=== PATIENT | male | born 1950 | race Caucasian/White ===

== ENCOUNTER 2024-05-17 14:36 | Outpatient (OUT) | payer OTHER, SELFPAY ==
--- NOTE | 2024-05-17 14:47 | XR_ITS ---
The [address] [address] Patient Name: LATISHA COSTA MRN: [id number] date: 1950 Sex: M Assigned Patient Location: [facility] Current Patient Location: Accession/Order Number: [id number] Exam Date: 05/17/2024 15:35 Report Date: 05/18/2024 08:26 At the request of: JULIO MATSON Procedure: XR chest 2V EXAMINATION: XR chest 2V HISTORY: Preop exam COMPARISON: No relevant comparison available. TECHNIQUE: PA and lateral FINDINGS: LUNGS: No significant pulmonary parenchymal abnormalities. Mild left basilar atelectasis VASCULATURE: No increased pulmonary vasculature. PLEURA: No pneumothorax, effusion, or pleural thickening. CARDIAC: No cardiomegaly or cardiac silhouette abnormality. MEDIASTINUM: No visible mass or adenopathy. BONES: Mild degenerative disc disease and spondylosis without visible acute abnormalities. OTHER: Negative. XR/XR chest 2V IMPRESSION: Mild left basilar atelectasis Electronically authenticated by: DANGELO MELCHOR Date: 05/18/2024 08:26
--- NOTE | 2024-05-17 14:47 | ECG_ITS ---
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
--- NOTE | 2024-05-17 15:26 | P.GSHP_ITS ---
History of Present Illness History of Present Illness Chief complaint: BPH with Obstruction Narrative: Patient presents for preadmission testing. The patient reports a history of urinary retention and has had a Maharaj catheter in place since November of this year. The patient states he does not have any abdominal pain, fever, nausea, vomiting, or urinary complaints at this time. Review of Systems ROS Narrative REVIEW OF SYSTEMS: Negative except as stated in HPI, ten or more systems reviewed. Constitutional: No fever, chills, weakness ENT: No sore throat or epistaxis Cardiovascular: No edema, chest pain, or palpitations Respiratory: No shortness of breath, cough, or wheezing Musculoskeletal: No joint pain or swelling Gastrointestinal: No abdominal pain, constipation, diarrhea, or vomiting Neurological: No numbness, tingling, weakness, or headache Psychiatric: No mood changes [facility] Medical History (Updated 05/17/24 @ 15:15 by Lynda Olivo NP) Edentulous ?K08.109 - Complete loss of teeth, unspecified cause, unspecified class (ICD- 10) Dysphagia ?R13.10 - Dysphagia, unspecified (ICD-10) Syncopal episodes ?R55 - Syncope and collapse (ICD-10) Dizziness ?R42 - Dizziness and giddiness (ICD-10) Aortic aneurysm ?I71.9 - Aortic aneurysm of unspecified site, without rupture (ICD-10) High cholesterol ?E78.00 - Pure hypercholesterolemia, unspecified (ICD-10) Kidney stones ?N20.0 - Calculus of kidney (ICD-10) Presence of internal carotid stent ?Z95.828 - Presence of other vascular implants and grafts (ICD-10) Gross hematuria ?R31.0 - Gross hematuria (ICD-10) Maharaj catheter in place ?Z97.8 - Presence of other specified devices (ICD-10) Urinary retention ?R33.9 - Retention of urine, unspecified (ICD-10) 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 - Malignant neoplasm of tonsil, unspecified (ICD-10) Renal cyst ?N28.1 - Cyst of kidney, acquired (ICD-10) Hypertension ?I10 - Essential (primary) hypertension (ICD-10) Hydronephrosis ?N13.30 - Unspecified hydronephrosis (ICD-10) CAD (coronary artery disease) ?I25.10 - Atherosclerotic heart disease of [place] coronary artery without angina pectoris (ICD-10) Arthritis ?M19.90 - Unspecified osteoarthritis, unspecified site (ICD-10) Thyroid disease ?E07.9 - Disorder of thyroid, unspecified (ICD-10) 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, unspecified (ICD-10) Gout ?M10.9 - Gout, unspecified (ICD-10) BPH with obstruction/lower urinary tract symptoms ?N40.1 - Benign prostatic hyperplasia with lower urinary tract symptoms (ICD- 10) ?N13.8 - Other obstructive and reflux uropathy (ICD-10) Surgical History (Updated 05/17/24 @ 14:45 by Lynda Olivo NP) H/O vascular surgery ?Z98.890 - Other specified postprocedural states (ICD-10) Hx of tonsillectomy ?Z90.89 - Acquired absence of other organs (ICD-10) History of radical neck dissection ?Z98.890 - Other specified postprocedural states (ICD-10) H/O cystoscopy ?Z98.890 - Other specified postprocedural states (ICD-10) Family History (Updated 05/17/24 @ 15:15 by Lynda Olivo NP) Other Family history of diabetes mellitus Social History (Updated 05/17/24 @ 15:07 by Lynda Olivo NP) Within the past year, how often did you have a drink containing alcohol: 2-3 times a week Smoking status: Former smoker Non-prescribed substance use: denies use 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 Highest level of school completed/degree received: high school graduate Meds Home Medications and Allergies Home Medications ?Medication ?Instructions ?Recorded ?Confirmed ?Type amlodipine 10 mg tablet 10 mg PO DAILY 05/17/24 05/17/24 History aspirin 81 mg tablet,delayed 81 mg PO DAILY 05/17/24 05/17/24 History release (Adult Aspirin Regimen) atenolol 25 mg tablet 25 mg PO DAILY 05/17/24 05/17/24 History clopidogrel 75 mg tablet 75 mg PO DAILY 05/17/24 05/17/24 History fluoxetine 20 mg capsule 20 mg PO DAILY 05/17/24 05/17/24 History gemfibrozil 600 mg tablet 600 mg PO DAILY 05/17/24 05/17/24 History hydrochlorothiazide 25 mg tablet 25 mg PO DAILY 05/17/24 05/17/24 History levothyroxine 25 mcg tablet 25 mcg PO DAILY 05/17/24 05/17/24 History losartan 100 mg tablet 100 mg PO DAILY 05/17/24 05/17/24 History Allergies Allergy/AdvReac Type Severity Reaction Status Date / Time Penicillins Allergy Rash Verified 05/17/24 15:00 Exam Narrative Exam Narrative: Constitutional: Awake, alert, comfortable, well-appearing, nontoxic, interactive, vital signs as charted Head: Normocephalic, atraumatic Neck: Supple, normal appearance, normal range of motion, no meningeal signs, no lymphadenopathy Respiratory: No respiratory distress, breath sounds clear Cardiovascular: Regular rate and rhythm, strong and regular heart tones Abdomen: Nontender, normal bowel sounds, soft, no CVA tenderness Musculoskeletal: Normal gait, no swelling or edema Skin: No rashes or induration, no lesions, only visible skin inspected Neuro: No neurological deficits, normal sensation Psychiatric: Oriented ?3, normal affect Assessment and Plan Assessment and Plan (1) BPH with obstruction/lower urinary tract symptoms: (2) Urinary retention: (3) Maharaj catheter in place: (4) Gross hematuria: Plan Cystoscopy/TURP scheduled with Dr. Avila May 27, 2024.
[2024-05-17 15:37] LABS: Basophils Absolute Auto 0.1 10^3/uL (0.0-0.1); Basophils Percent Auto 1.5 % (0.2-2.0); Eosinophils Absolute Auto 0.4 10^3/uL (0.0-0.7); Eosinophils Percent Auto 6.3 % (0.9-7.0); Hematocrit 37.4 % (42.0-54.0); Immature Granulocytes Abs Auto 0.02 10^3/uL (0.00-0.03); Immature Granulocytes Pct Auto 0.3 % (0.0-0.5); Lymphocytes Absolute Auto 1.4 10^3/uL (1.2-3.8); Lymphocytes Percent Auto 20.7 % (20.5-60.0); Mean Corpuscular HGB Conc 32.1 g/dL (29.9-35.2); Mean Corpuscular Hemoglobin 30.5 pg (25.9-34.0); Mean Corpuscular Volume 95.2 fL (80.0-94.0); Mean Platelet Volume 9.3 fL (9.5-13.5); Monocytes Absolute Auto 0.8 10^3/uL (0.3-0.8); Monocytes Percent Auto 12.3 % (1.7-12.0); Neutrophils Absolute Auto 3.9 10^3/uL (1.4-6.5); Neutrophils Percent Auto 58.9 % (43.0-75.0); Platelet Count 275 10^3/uL (150-450); Red Blood Count 3.93 10^6/uL (4.70-6.10); Red Cell Distribution Width 12.7 % (11.0-15.0); White Blood Count 6.5 10^3/uL (4.0-11.0)
[2024-05-17 15:58] LABS: Anion Gap 9.8; Calcium 8.7 mg/dL (8.5-10.1); Carbon Dioxide 26.6 mmol/L (21.0-32.0); Chloride 105 mmol/L (98-107); Estimated GFR (African America 30 (>=60); Estimated GFR (Non-African Ame 25 (>=60); Glucose 91 mg/dL (74-106); Potassium 4.4 mmol/L (3.5-5.1); Sodium 137 mmol/L (136-145)
[2024-05-17 16:01] LABS: INR 0.97; Partial Thromboplastin Time 30.5 sec (22.3-36.2); Prothrombin Time 10.3 sec (9.0-11.6)
== END 2024-05-17 14:37 | disposition home or self-care (01) ==
LOC: PST 14:41
PROVIDERS: Family Provider Family Medicine; Visit Provider Urology
DX: Z01.810 Encounter for preprocedural cardiovascular examination (principal); Z01.812 Encounter for preprocedural laboratory examination; Z01.818 Encounter for other preprocedural examination; N40.1 Benign prostatic hyperplasia with lower urinary tract symptoms
CPT/HCPCS: 71046; 80048; 85025; 85610; 85730; 93005; G0463

== ENCOUNTER 2024-05-27 10:53 | Day surgery (SDC) | payer OTHER, SELFPAY ==
[2024-05-17 15:23] VITALS: BP 129/86; PULSE 71; TEMP 36.3; O2SAT 96; BMI 31.9
[2024-05-27] VITALS (13 sets, daily range): BP systolic 102–137; BP diastolic 60–91; PULSE 62–92; TEMP 36–36.7; O2SAT 93–100; BMI 31.1
--- OUTSIDE RECORDS SUMMARY | 2024-05-27 10:58 | XMS_ITS | CCD ---
Author Organization [facility] Care Team Providers Care Incising Machine Operator Name Role Phone DO Dangelo Schuler Primary Care Provider MD Peter Imtani Attending Provider DO Dangelo Schuler Primary Care Provider DO Dangelo Schuler Attending Provider JOSE ANGEL Alonso Emergency Provider MD Travon Pandya Admit Provider [phone] MD Travon Pandya Attending Provider [phone] Unallocated, [place] Provider [facility]riz E Emergency Provider [phone] KUN NOLASCO Attending Unavailable KUN NOLASCO Referring Unavailable DANGELO SCHULER Primary Care Physician DO Dangelo Schuler Primary Care Provider DO Dangelo Schuler Attending Provider Anitha [facility] Beatriz E Emergency Provider [phone] DO Dangelo Schuler Primary Care Provider DO Darryl Garcia Emergency Provider [phone] Latisha Suazo Attending Unavailable Latisha Sauzo Referring Unavailable Rajat AVILA Attending Unavailable Bess Duarte Attending Unavailable Bess Duarte Attending Unavailable Rajat AVILA Attending Unavailable Rajat AVILA Attending Unavailable Rajat AVILA Attending Unavailable AVILARajat Attending Unavailable Rajat AVILA Referring Unavailable Rajat AVILA Admitting Unavailable Rajat AVILA Attending Unavailable Dangelo Schuler Primary Care Unavailable Darryl Garcia Admitting Unavailable Darryl Garcia Attending Unavailable Beatriz Welsh Admitting Unavailable Beatriz Welsh Attending Unavailable Dangelo Schuler Primary Care Unavailable Gregoryroallan, Dangelo Ragland Attending Unavailable Dangelo Schuler Admitting Unavailable Degroallan, Dangelo Ragland Primary Care Unavailable Dangelo Schuler Attending Unavailable GregoryroDangelo lemus Admitting Unavailable Degroh, Dangelo Ragland Primary Care Unavailable Will Jane Attending Unavailable Dannie Montana Consulting Unavailable Daromakurt Obaydaallan M Admitting Unavailable Dangelo Schuler Primary Care Unavailable Triny Armstrong Consulting Unavailable Sravan Grossman Consulting Unavailable SinghSacha ya Consulting Unavailable Guillermo Geronimo Consulting Unavailable Eladio Garcia Consulting Unavailable Latisha Suazo Consulting Unavailable Asaad, Imad Admitting Unavailable Asaad, Imad Attending Unavailable Dangelo Schuler Primary Care Unavailable Allergies Allergy Classification Reported Allergen(s) Allergy Type Date of Onset Reaction(s) Facility (4 sources) Penicillins; Translations: [Penicillins] Allergy to substance 8 [facility] (6 sources) Penicillin; Translations: [penicillin] Drug Allergy Eruption of skin (disorder) [facility] Medications Current Medications Medication Drug Class(es) Dates Sig (Normalized) Sig (Original) amLODIPine 10 mg oral tablet (11 sources) Dihydropyridine Calcium Channel Paulino Start: 12-01-2023 amLODIPine 10 mg Tab Refills(s) 0 Start Date: 01/05/24 Status: Ordered Aspirin (12 sources) Platelet Aggregation Inhibitor, Nonsteroidal Anti-inflammatory Drug Start: 01-05-2024 Adult Aspirin Refills(s) 0 Start Date: 01/05/24 Status: Ordered Start: 04-15-2018 take 81 mg by mouth once daily Aspirin Active 81 MG PO Daily April 15, 2018 12:00am atenolol 25 mg oral tablet (9 sources) beta-Adrenergic Paulino Start: 04-15-2018 take 25 mg by mouth once daily Atenolol Active 25 MG PO Daily April 15, 2018 12:00am cholecalciferol 0.05 mg oral tablet (9 sources) Vitamin D Start: 02-20-2021 take 1 tablet by mouth once daily Cholecalciferol (Vitamin D3) (Vitamin D3) 50 mcg (2,000 unit) Tablet Active 50 MCG PO Daily February 20, 2021 12:00am cholecalciferol (Vitamin D-3) 25 MCG (1000 UT) tablet clopidogrel 75 mg oral tablet (14 sources) P2Y12 Platelet Inhibitor Start: 04-15-2018 clopidogrel 75 mg Ta b Refills(s) 0 Start Date: 01/05/24 Status: Ordered doxycycline hyclate 100 mg oral capsule (9 sources) Tetracycline-class Drug Start: 12-02-2023 End: 12-09-2023 doxycycline (Vibramycin) 100 MG capsule Indications: Cellulitis of right middle finger Take 1 capsule (100 mg) by mouth in the morning and 1 capsule (100 mg) before bedtime. Do all this for 7 days. Take with at least 8 ounces (large glass) of water, do not lie down for 30 minutes after. 14 capsule 0 12/02/2023 12/09/2023 Active Start: 02-20-2021 End: 07-23-2023 take 100 mg by mouth twice daily Doxycycline Hyclate Discontinued 100 MG PO Twice daily 14 7 February 20, 2021 12:00am July 23, 2023 9:58am FLUoxetine 20 mg oral capsule (12 sources) Serotonin Reuptake Inhibitor Start: 11-25-2023 FLUoxetine 20 mg Cap Refills(s) 0 Start Date: 01/05/24 Status: Ordered Gemfibrozil (14 sources) Peroxisome Proliferator Receptor alpha Agonist Start: 01-05-2024 take 1 mg by mouth twice daily gemfibrozil mg, Oral, BID, Refills(s) 0 Start Date: 01/05/24 Status: Ordered Start: 04-15-2018 take 600 mg by mouth once delia y Gemfibrozil Active 600 MG PO Daily April 15, 2018 12:00am hydroCHLOROthiazide 25 mg oral tablet (14 sources) Thiazide Diuretic Start: 04-15-2018 hydrochlorothiazide 25 mg Tab Refills(s) 0 Start Date: 01/05/24 Status: Ordered levothyroxine sodium 0.025 mg oral tablet (14 sources) l-Thyroxine Start: 01-05-2024 levothyroxine 25 mcg (0.025 mg) Tab Refills(s) 0 Start Date: 01/05/24 Status: Ordered Start: 04-15-2018 take 25 ug by mouth once daily Levothyroxine Active 25 MCG PO Daily April 15, 2018 12:00am losartan potassium 100 mg oral tablet (16 sources) Angiotensin 2 Receptor Paulino Start: 04-15-2018 End: 07-23-2023 take 100 mg by mouth once daily Losartan Active 100 MG PO Daily July 23, 2023 12:00am Mx-Ulm-Sm-Ca-Fe-Ly copen-Lutein (4 sources) Start: 07-23-2023 take 1 tablet by mouth once daily Nj-Bbu-Bl-Ca-Fe- Lycopen-Lutein Active 1 TAB PO Daily July 23, 2023 12:00am Start: 07-23-2023 take 1 tablet by juli th once daily Yo-Orw-Bj-Pj-Dw-Xpyrcsv-Lutein Active 1 TAB PO Daily July 22, 2023 11:00pm Ie-Fbk-Rc-Ma-Mc-Recbizv-Lute in (Centrum) 0.4-162-18 mg Tablet (3 sources) Start: 07-23-2023 take 1 tablet by mouth once daily Jw-Rqu-Ts-Is-Tt-Fuefirb-Lutein (Centrum) 0.4-162-18 mg Tablet Active 1 TAB PO Daily July 22, 2023 11:00pm Start: 07-23-2023 take 1 tablet by juli th once daily Jx-Pst-Mt-Nz-Wb-Bpzeywr-Lutein (Centrum) 0.4-162-18 mg Tablet Active 1 TAB PO Daily July 23, 2023 12:00am tamsulosin hydrochloride 0.4 mg oral capsule (5 sources) alpha-Adrenergic Paulino Start: 01-05-2024 take 1 capsule by mouth once daily tamsulosin 0.4 mg Cap 0.4 mg = 1 cap(s), Oral, Daily, # 30 cap(s), Refills(s) 4, Pharmacy: [facility] #[id number], 183, cm, 01/05/24 13:42:00 EDT, Height/Length Dosing, 105, kg, 01/05/24 13:42:00 EDT, Weight Dosing Start Date: 01/05/24 Status: Ordered vitamin e 400 unt/ml oral solution (14 sources) Start: 02-20-2021 End: 07-23-2023 take 400 [IU] by mouth once daily Vitamin E Active 400 UNIT PO Daily July 23, 2023 12:00am Completed/Discontinued Medications Medication Drug Class(es) Dates Sig (Normalized) Sig (Original) acetaminophen 325 mg / HYDROcodone bitartrate 5 mg oral tablet (7 sources) Opioid Agonist Start: 04-15-2018 End: 02-08-2020 take 1 tablet by mouth every eight hours Hydrocodone-Acetam inophen (Pacoima) 5-325 mg tablet Discontinued 1 TAB PO Q8H April 15, 2018 February 08, 2020 4:33pm [id number] 200 actuat albuterol 0.09 mg/actuat metered dose inhaler (7 sources) beta2-Adrenergic Agonist Start: 02-08-2020 End: 07-23-2023 Albuterol Sulfate Discontinued 2 INH INHALATION EVERY 4-6 HOURS 6.7 7 February 08, 2020 12:00am July 23, 2023 9:58am azithromycin 250 mg oral tablet (7 sources) Macrolide Antimicrobial Start: 02-08-2020 End: 02-20-2021 take 2-5 tablets by mouth once daily Azithromycin (Zithromax Z-Brent) 250 mg tablet Discontinued 0 PO .COMPLEX 6 February 08, 2020 12:00am February 20, 2021 3:47am take 500 mg today (day 1), then 250 mg for 4 days (days 2-5) ciprofloxacin 500 mg oral tablet (4 sources) Quinolone Antimicrobial Start: 02-09-2024 take 1 tablet by mouth once daily Cipro 500 mg Tab 500 mg = 1 tab(s), Oral, Daily, Take 1 tablet the day before the procedure, # 1 tab(s), Refills(s) 0, Pharmacy: [facility] #[id number], 183, cm, 01/05/24 13:42:00 EDT, Height/Length Dosing, 105, kg, 01/05/24 13:42:00 EDT, Weight Dosing Start Date: 02/09/24 Status: Ordered Start: 01-28-2024 take 1 tablet by juli th once daily Cipro 500 mg Tab 500 mg = 1 tab(s), Oral, Daily, Take 1 tablet the day before the procedure and 1 tablet after the procedure, # 2 tab(s), Refills(s) 0, Pharmacy: [facility] #[id number], 183, cm, 01/05/24 13:42:00 EDT, Height/Length Dosing, 105, kg, 01/05/24 13:42:00 EDT, Weight Dosing Start Date: 01/28/24 Status: Ordered Kjuxylgx-Kyb-Affxdlv Fumarate (Multi Vitamin) 9 mg iron/15 mL Liquid (7 sources) Start: 04-15-2018 End: 07-23-2023 take 1 tablet by mouth once daily Lazkmyii-Hen-Smjsysi Fumarate (Multi Vitamin) 9 mg iron/15 mL Liquid Discontinued 1 TAB PO Daily April 14, 2018 11:00pm July 23, 2023 8:57am Start: 04-15-2018 End: 07-23-2023 take 1 tablet by mouth once daily Mvdzncqg-Bhv-Dtkucvk Fumarate (Multi Vitamin) 9 mg iron/15 mL Liquid Discontinued 1 TAB PO Daily April 15, 2018 12:00am July 23, 2023 9:57am Sod Picosulf-Mag Ox-Citric Ac (2 sources) Start: 12-11-2023 End: 01-20-2024 take 1 dose by mouth once daily Sod Picosulf-Mag Ox-Citric Ac (Clenpiq) 10 mg-3.5 gram- 12 gram/175 mL solution Discontinued 175 ML PO Daily December 11, 2023 1:00am January 20, 2024 1:15pm Take first dose at 3pm orally the day before colonoscopy, Take second dose at 9pm orally the day before colonoscopy. 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 ] 01-01-2024 Chronic Chronic kidney disease (10 sources) Chronic kidney disease stage 4; Translations: [Chronic kidney disease, stage 4 (severe)] Onset: 01-19-2024 Chronic Coronary atherosclerosis and other heart disease (18 sources) Coronary arteriosclerosis; Translations: [Atherosclerotic heart disease of [place] coronary artery without angina pectoris] Onset: 4 02-20-2021 Chronic Deficiency and other anemia (4 sources) Anemia; Translations: [Anemia, unspecified] 11-26-2023 Episodic Essential hypertension (16 sources) Hypertensive disorder; Translations: [Essential (primary) hypertension] Onset: 4 02-20-2021 Chronic Genitourinary symptoms and ill-defined conditions (19 sources) Acute retention of urine ; Translations: [Other retention of urine] Onset: 4 11-25-2023 Episodic Gout and other crystal arthropathies (5 sources) Gout 01-01-2024 Chronic Hyperplasia of prostate (14 sources) Benign prostatic hypertrophy without outflow obstruction; Translations: [Benign prostatic hyperplasia without lower urinary tract symptoms] Onset: Chronic Hypertension with complications and secondary hypertension (4 sources) Chronic kidney disease due to hypertension; Translations: [Hypertensive chronic kidney disease with stage 1 through stage 4 chronic kidney disease, or unspecified chronic kidney disease] 01-19-2024 Chronic Osteoarthritis (7 sources) Osteoarthritis of joint of right hand; Translations: [Primary osteoarthritis, right hand] 12-02-2023 Chronic Other connective tissue disease (2 sources) Pain in finger; Translations: [Pain in right finger(s)] 12-02-2023 Episodic Other diseases of bladder and urethra (1 source) Bleeding from urethra; Translations: [Other specified disorders of urethra] 04-04-2024 Episodic Other diseases of kidney and ureters (2 sources) Secondary hyperparathyroidism; Translations: [Secondary hyperparathyroidism of renal origin] 01-19-2024 Chronic Other diseases of kidney and ureters (2 sources) Secondary hyperparathyroidism of renal origin; Translations: [Secondary hyperparathyroidism (of renal origin)] 01-20-2024 Chronic Other diseases of kidney and ureters (7 sources) Hydronephrosis; Translations: [Unspecified hydronephrosis] Onset: 4 Episodic Other diseases of kidney and ureters (2 sources) Acquired renal cyst without neoplastic change; Translations: [Cyst of kidney, acquired] Onset: 4 Episodic Other diseases of kidney and ureters (5 sources) Cyst of kidney 01-04-2024 Episodic Other injuries and conditions due to external causes (7 sources) Aspiration into respiratory tract; Translations: [Unspecified foreign body in respiratory tract, part unspecified causing other injury, initial encounter] 02-20-2021 Episodic Other lower respiratory disease (7 sources) Dyspnea; Translations: [Shortness of breath] 02-20-2021 Episodic Other screening for suspected conditions (not mental disorders or infectious disease) (1 source) Encounter for screening for malignant neoplasm of prostate; Translations: [Screening for malignant neoplasm done] Onset: 4 Episodic Pneumonia (except that caused by tuberculosis or sexually transmitted disease) (7 sources) Community acquired pneumonia; Translations: [Pneumonia, unspecified organism] 02-08-2020 Episodic Residual codes; unclassified (1 source) Urinary catheter in situ; Translations: [Presence of other specified devices] 04-04-2024 Episodic Skin and subcutaneous tissue infections (2 sources) Cellulitis of finger; Translations: [Cellulitis of right finger] 12-02-2023 Episodic Thyroid disorders (12 sources) Hypothyroidism; Translations: [Hypothyroidism, unspecified] 02-20-2021 Chronic Thyroid disorders (5 sources) Disorder of thyroid gland 01-01-2024 Episodic Unclassified (3 sources) Finding of sensation of bladder 02-27-2024 Unclassified (1 source) Thoracic aortic aneurysm, without rupture, unspecified; Translations: [Thoracic aortic aneurysm, without rupture, unspecified] Onset: 4 Unclassified (1 source) Encounter for screening for malignant neoplasm of colon; Translations: [Encounter for screening for malignant neoplasm of colon] Onset: 3 Past or Other Problems Problem Classification Problem Date Documented Da te Episodic/Chronic Acute and unspecified renal failure (14 sources) Acute renal failure syndrome; Translations: [Acute kidney failure, unspecified] Onset: 4 11-25-2023 Episodic Deficiency and other anemia (4 sources) Anemia, unspecified; Translations: [Anemia, unspecified] Onset: 4 11-25-2023 Episodic Phlebitis; thrombophlebitis and thromboembolism (4 sources) Phlebitis; Translations: [Phlebitis and thrombophlebitis of unspecified site] Onset: 4 12-04-2023 Episodic Results Test Name Value Interpretation Reference Range Facil ity Ambulatory Visit Summaryon 0 04-19-2024 Ambulatory Visit Summary Ambulatory Visit Summary LATISHA COSTA :1950 Visit Date:04/19/2024 Ambulatory Visit Instructions Your Care Team Attending Physician - SAMMI Duarte APRN, Bess Lynch Primary Care Physician - DANGELO SCHULER DO This Is Your Medications List amlodipine (amLODIPine 10 mg Tab) aspirin (Adult Aspirin) ciprofloxacin (Cipro 500 mg Tab) clopidogrel (clopidogrel 75 mg Tab) fluoxetine (FLUoxetine 20 mg Cap) gemfibrozil hydrochlorothiazide (hydrochlorothiazide 25 mg Tab) levothyroxine (levothyroxine 25 mcg (0.025 mg) Tab) tamsulosin (tamsulosin 0.4 mg Cap) Procedures Performed Flexible cystoscope (02/27/2024), Extended radical neck dissection, Tonsillectomy, Vascular surgery. What to do next Scheduled Follow-Up Appointments Friday 9:30 AM EDT With: Where: [facility] [address] [place] [address]- \.br\ Medications\.br\ What How Much When Why Instructions\.br\ Unchanged amlodipine (amLODIPine 10 mg Tab)\.br\ Unchanged aspirin (Adult Aspirin)\.br\ Unchanged ciprofloxacin (Cipro 500 mg Tab) 1 Tablets By Mouth Every day Take 1 tablet the day before the procedure \.br\ Unchanged clopidogrel (clopidogrel 75 mg Tab)\.br\ Unchanged fluoxetine (FLUoxetine 20 mg Cap)\.br\ Unchanged gemfibrozil By Mouth 2 times a day\.br\ Unchanged hydrochlorothiazide (hydrochlorothiazide 25 mg Tab)\.br\ Unchanged levothyroxine (levothyroxine 25 mcg (0.025 mg) Tab)\.br\ Unchanged tamsulosin (tamsulosin 0.4 mg Cap) 1 Capsules By Mouth Every day BPH (benign prostatic hyperplasia)\.br\ Allergies\.br\ penicillin (Rash)\.br\ Problems\.br\ Ongoing - Any problem that you are currently receiving treatment for.\.br\ Arthritis\.br\ BPH (benign prostatic hyperplasia)\.br\ BPH with urinary obstruction\.br\ Coronary artery disease\.br\ Feeling of incomplete bladder emptying\.br\ Gout\.br\ Hydronephrosis\.br\ Hypertension\.br\ Hypothyroidism\.br\ Kidney cysts\.br\ 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 Please share your experience with us by completing your survey. We appreciate your feedback and thank you for choosing us for your care.\.br\ \.br\ [facility] Automated basophil %Ordered By: Darryl Garcia on 04-04-2024 Basophils/100 WBC (Bld) 1.4 % Normal . [facility] Comment on above: Performed By: #### H EPACUTE #### [facility] , Automated basophil countOrde red By: Darryl Garcia on 04-04-2024 Basophils (Bld) [#/Vol] 0.1 10*3/uL Normal 0.0-0.2 [facility] Comment on above: Result Comment: PERF ORMED BY: [facility] [address] [place] [address] PATHOLOGIST STATEMENT CLERK LUZ MARINA EMANUEL M.D. Performed By: #### H EPACUTE #### [facility] , Automated blood monocyte cou ntOrdered By: Darryl Garcia on 04-04-2024 Monocytes (Bld) [#/Vol] 0.6 10*3/uL Normal 0.0-0.8 [facility] Comment on above: Performed By: #### H EPACUTE #### [facility] , Automated eosinophil %Ordere d By: Darryl Garcia on 04-04-2024 Eosinophils/100 WBC (Bld) 5.0 % Normal . [facility] Comment on above: Performed By: #### H EPACUTE #### [facility] , Automated eosinophil countOr dered By: Darryl Garcia on 04-04-2024 Eosinophils (Bld) [#/Vol] 0.3 10*3/uL Normal 0.0-0.45 [facility] Comment on above: Performed By: #### H EPACUTE #### [facility] , Automated monocyte %Ordered By: Darryl Garcia on 04-04-2024 Monocytes/100 WBC (Bld) 10.9 % Normal . [facility] Comment on above: Performed By: #### H EPACUTE #### [facility] , Automated neutrophil %Ordere d By: Darryl Garcia on 04-04-2024 Neutrophils/100 WBC (Bld) 62.8 % Normal . [facility] Comment on above: Performed By: #### H EPACUTE #### [facility] , Bacteria [Presence] in Urine by AutomatedOrdered By: Darryl Garcia on 04-04-2024 Bacteria Auto Ql (U) None seen [HPF] None Seen [facility] Basic Metabolic Panelon 03-20 Creatinine Clr Calc Pharmacy 35.25 Normal [facility] Comment on above: Result Comment: PERF ORMED BY: [facility] [address] [place] [address] PATHOLOGIST STATEMENT CLERK LUZ MARINA EMANUEL M.D. Performed By: #### H EPACUTE #### [facility] , GFR/1.73 sq M.predicted MDRD (S/P/Bld) [Vol rate/Area] 27.589 mL/min/{1.73_m2} Normal [facility] Comment on above: Performed By: #### H EPACUTE #### [facility] , Bilirubin Test strip Ql (U)O rdered By: Darryl Garcia on 04-04-2024 Bilirubin Ql (U) Negative Negative [facility] Calcium [Mass/volume] in Ser um or PlasmaOrdered By: Darryl Garcia on 04-04-2024 Calcium [Mass/Vol] 9.0 mg/dL Normal 8.6-10.3 [facility] Comment on above: Performed By: #### H EPACUTE #### [facility] , Carbon dioxide, total [Moles /volume] in Serum or PlasmaOrdered By: Darryl Garcia on 04-04-2024 CO2 [Moles/Vol] 28.0 mmol/L Normal 21.0-31.0 [facility] Comment on above: Performed By: #### H EPACUTE #### [facility] , Chloride [Moles/volume] in S mariya or PlasmaOrdered By: Darryl Garcia on 04-04-2024 Chloride [Moles/Vol] 107 mmol/L Normal 98-107 [facility] Comment on above: Performed By: #### H EPACUTE #### [facility] , Color of Urine by AutoOrdere d By: Darryl Garcia on 04-04-2024 Color (U) Light-yellow Normal Yellow [facility] Comment on above: Order Comment: Name Collection Type:: Lee Catheter Performed By: #### H EPACUTE #### [facility] , Complete Blood Count Auto Di ffon 04-04-2024 Mean Corpuscular HGB Conc 34.0 g/dL Normal 32.5-35.6 [facility] Comment on above: Performed By: #### H EPACUTE #### [facility] , Monocytes/100 WBC (Bld) 16.17 % Normal 0.00-20.00 [facility] Comment on above: Performed By: #### H EPACUTE #### [facility] , NRBC% 0.1 /100{WBC} Normal 0-0.5 [facility] Comment on above: Performed By: #### H EPACUTE #### [facility] , Creatinine [Mass/volume] in Serum or PlasmaOrdered By: Darryl Garcia on 04-04-2024 Creatinine [Mass/Vol] 2.44 mg/dL High 0.70-1.30 [facility] Comment on above: Performed By: #### H EPACUTE #### [facility] , Crystals.amorphous [Presence ] in Urine by Computer assisted methodOrdered By: Darryl Garcia on 04-04-2024 Crystals.amorphous Computer assisted Ql (U) 1+ [HPF] [facility] Dipstick and Microscopicon 0 04-04-2024 Amorphous Crystal,Urine 1+ Normal [facility] Comment on above: Order Comment: Name Collection Type:: Lee Catheter Performed By: #### H EPACUTE #### [facility] , Bacteria,Urine None Seen Normal None Seen [facility] Comment on above: Order Comment: Name Collection Type:: Lee Catheter Performed By: #### H EPACUTE #### [facility] , Bilirubin,Urine Negative Normal Negative [facility] Comment on above: Order Comment: Name Collection Type:: Lee Catheter Performed By: #### H EPACUTE #### [facility] , Glucose Ql (U) Normal Normal Normal [facility] Comment on above: Order Comment: Name Collection Type:: Lee Catheter Performed By: #### H EPACUTE #### [facility] , Hyaline Casts,Urine None Normal 0-8 [facility] Comment on above: Order Comment: Name Collection Type:: Lee Catheter Performed By: #### H EPACUTE #### [facility] , Mucus,Urine Rare Normal [facility] Comment on above: Order Comment: Name Collection Type:: Lee Catheter Result Comment: PERF ORMED BY: [address] [place] [id number] PATHOLOGIST STATEMENT CLERK LUZ MARINA EMANUEL M.D. Performed By: #### H EPACUTE #### [facility] , Nitrite,Urine Positive High Negative [facility] Comment on above: Order Comment: Name Collection Type:: Lee Catheter Performed By: #### H EPACUTE #### [facility] , Occult Blood,Urine 3+ High Negative [facility] Comment on above: Order Comment: Name Collection Type:: Lee Catheter Result Comment: PERF ORMED BY: [address] [place] [address] PATHOLOGIST STATEMENT CLERK LUZ MARINA EMANUEL M.D. Performed By: #### H EPACUTE #### [facility] , RBC,Urine Innumerable High 0-4 [facility] Comment on above: Order Comment: Name Collection Type:: Lee Catheter Performed By: #### H EPACUTE #### [facility] , Specificy [place],Urine 1.014 Normal 1.001-1.030 [facility] Comment on above: Order Comment: Name Collection Type:: Lee Catheter Performed By: #### H EPACUTE #### [facility] , Urobilinogen,Urine Normal Normal Normal [facility] Comment on above: Order Comment: Name Collection Type:: Lee Catheter Performed By: #### H EPACUTE #### [facility] , Urothelial Cells 1-2 High 0-1 [facility] Comment on above: Order Comment: Name Collection Type:: Lee Catheter Performed By: #### H EPACUTE #### [facility] , WBC,Urine 3-4 Normal 0-4 [facility] Comment on above: Order Comment: Name Collection Type:: Lee Catheter Performed By: #### H EPACUTE #### [facility] , Epithelial cells.squamous [# /area] in Urine sediment by Automated countOrdered By: Darryl Garcia on 04-04-2024 Epithelial cells.squamous Auto (Urine sed) [#/Area] N/A [facility] Erythrocyte distribution wid th [Ratio] by Automated countOrdered By: Darryl Garcia on 04-04-2024 Erythrocyte distribution width (RBC) [Ratio] 13.1 % Normal 12.0-14.8 [facility] Comment on above: Performed By: #### H EPACUTE #### [facility] , Erythrocytes [#/area] in Uri ne sediment by Automated countOrdered By: Darryl Garcia on 04-04-2024 RBC Auto (Urine sed) [#/Area] Innumerable [HPF] 0-4 [facility] Erythrocytes [#/volume] in B lood by Automated countOrdered By: Darryl Garcia on 04-04-2024 RBC (Bld) [#/Vol] 3.66 10*6/uL Low 3.90-5.60 [facility] Comment on above: Performed By: #### H EPACUTE #### [facility] , Glucose [Mass/volume] in Ser um or PlasmaOrdered By: Darryl Garcia on 04-04-2024 Glucose [Mass/Vol] 84 mg/dL Normal 70-100 [facility] Comment on above: ADA recommended refe rence rangeRandom Glucose Reference Range is dependent on time and content of last meal. Glucose of more than 200 mg/dL in a nonstressed, ambulatory subject supports the diagnosis of Diabetes Mellitus. Result Comment: [place] Glucose Reference Range is dependent on time and content of last meal. Glucose of more than 200 mg/dL in a nonstressed, ambulatory subject supports the diagnosis of Diabetes Mellitus. ADA recommended reference range Performed By: #### H EPACUTE #### [facility] , Glucose [Mass/volume] in Uri ne by Test stripOrdered By: Darryl Garcia on 04-04-2024 Glucose Test strip (U) [Mass/Vol] Normal mg/dL Normal [facility] Hematocrit [Volume Fraction] of Blood by Automated countOrdered By: Darryl Garcia on 04-04-2024 Hematocrit (Bld) [Volume fraction] 33.8 % Low 38.8-50.0 [facility] Comment on above: Performed By: #### H EPACUTE #### [facility] , Hemoglobin Test strip Ql (U) Ordered By: Darryl Garcia on 04-04-2024 Hemoglobin Ql (U) 3+ Negative [facility] Hemoglobin [Mass/volume] in BloodOrdered By: Darryl Garcia on 04-04-2024 Hemoglobin (Bld) [Mass/Vol] 11.5 g/dL Low 13.0-17.0 [facility] Comment on above: Performed By: #### H EPACUTE #### [facility] , Hyaline casts [#/area] in Ur ine sediment by Automated countOrdered By: Darryl Garcia on 04-04-2024 Hyaline casts Auto (Urine sed) [#/Area] None [LPF] 0-8 [facility] INR in Platelet poor plasma by Coagulation assayOrdered By: Darryl Garcia on 04-04-2024 INR Coag (PPP) [Relative time] 1.0 {INR} Normal [facility] Comment on above: INR Therapeutic Rang e A) Pre- and Peroperative OAT started two weeks before surgery. NOT HIP SURGERY: 1.5 - 2.5 HIP SURGERY: 2 - 3B) Primary and secondary prevention of venous THROMBOSIS: 2 - 3C) Active venous thrombosis, pulmonary embolismand prevention of recurrent venous thrombosis: 2 - 3D) Prevention of arterial thromboembolismincluding patients with mechanical heart valves: 3 - 4.5 Result Comment: INR Therapeutic Range A) Pre- and Peroperative OAT started two weeks before surgery. NOT HIP SURGERY: 1.5 - 2.5 HIP SURGERY: 2 - 3 B) Primary and secondary prevention of venous THROMBOSIS: 2 - 3 C) Active venous thrombosis, pulmonary embolism and prevention of recurrent venous thrombosis: 2 - 3 D) Prevention of arterial thromboembolism including patients with mechanical heart valves: 3 - 4.5 PERFORMED BY: [address] [address] PATHOLOGIST STATEMENT CLERK LUZ MARINA EMANUEL M.D. Performed By: #### H EPACUTE #### [facility] , Ketones [Presence] in Urine by Test stripOrdered By: Darryl Garcia on 04-04-2024 Ketones Ql (U) Negative Normal Negative [facility] Comment on above: Order Comment: Name Collection Type:: Lee Catheter Performed By: #### H EPACUTE #### [facility] , Leukocyte esterase [Presence ] in Urine by Test stripOrdered By: Darryl Garcia on 04-04-2024 Leukocyte esterase Test strip Ql (U) Negative Normal Negative [facility] Comment on above: Order Comment: Name Collection Type:: Lee Catheter Performed By: #### H EPACUTE #### [facility] , Leukocytes [#/area] in Urine sediment by Automated countOrdered By: Darryl Garcia on 04-04-2024 WBC Auto (Urine sed) [#/Area] 3-4 [HPF] 0-4 [facility] Leukocytes [#/volume] correc jones for nucleated erythrocytes in Blood by Automated counOrdered By: Darryl Garcia on 04-04-2024 WBC corrected for nucl RBC Auto (Bld) [#/Vol] 5.4 10*3/uL 4.1-10.5 [facility] Leukocytes [#/volume] in Blo od by Automated countOrdered By: Darryl Garcia on 04-04-2024 WBC (Bld) [#/Vol] 5.4 10*3/uL Normal 4.1-10.5 [facility] Comment on above: Performed By: #### H EPACUTE #### [facility] , Lymphocytes [#/volume] in Bl ood by Automated countOrdered By: Darryl Garcia on 04-04-2024 Lymphocytes (Bld) [#/Vol] 1.1 10*3/uL Normal 1.00-4.8 [facility] Comment on above: Performed By: #### H EPACUTE #### [facility] , Lymphocytes/100 leukocytes i n Blood by Automated countOrdered By: Darryl Garcia on 04-04-2024 Lymphocytes/100 WBC (Bld) 19.9 % Normal . [facility] Comment on above: Performed By: #### H EPACUTE #### [facility] , MCH [Entitic mass] by Automa jones countOrdered By: Darryl Garcia on 04-04-2024 MCH (RBC) [Entitic mass] 31.4 pg Normal 27.5-35.2 [facility] Comment on above: Performed By: #### H EPACUTE #### [facility] , MCHC Auto (RBC) [Mass/Vol]Or dered By: Darryl Garcia on 04-04-2024 MCHC (RBC) [Mass/Vol] 34.0 g/dL 32.5-35.6 [facility] MCV [Entitic volume] by Auto mated countOrdered By: Darryl Garcia on 04-04-2024 MCV (RBC) [Entitic vol] 92.3 fL Normal 83.5-101 [facility] Comment on above: Performed By: #### H EPACUTE #### [facility] , Monocyte distribution width [Entitic volume] in Blood by AutomatedOrdered By: Darryl Garcia on 04-04-2024 Monocyte distribution width Auto (Bld) [Entitic vol] 16.17 % 0.00-20.00 [facility] Mucus [Presence] in Urine by AutomatedOrdered By: Darryl Garcia on 04-04-2024 Mucus Auto Ql (U) Rare [LPF] [facility] Neutrophils [#/volume] in Bl ood by Automated countOrdered By: Darryl Garcia on 04-04-2024 Neutrophils (Bld) [#/Vol] 3.4 10*3/uL Normal 1.8-7.7 [facility] Comment on above: Performed By: #### H EPACUTE #### [facility] , Nitrite Test strip Ql (U)Ord ered By: Darryl Garcia on 04-04-2024 Nitrite Ql (U) Positive Negative [facility] No Panel InformationOrdered By: Darryl Garcia on 04-04-2024 Estimated GFR (CKD-EPI) 27.589 mL/Min [facility] Creatinine Clearance (Chem 35.25 [facility] Nucleated erythrocytes [Pres ence] in Blood by Automated countOrdered By: Darryl Garcia on 04-04-2024 Nucleated RBC Auto Ql (Bld) 0.1 /100{WBC} 0-0.5 [facility] Platelet mean volume [Entiti c volume] in Blood by Automated countOrdered By: Darryl Garcia on 04-04-2024 Platelet mean volume (Bld) [Entitic vol] 7.5 fL Normal 6.6-10.1 [facility] Comment on above: Performed By: #### H EPACUTE #### [facility] , Platelets [#/volume] in Bloo d by Automated countOrdered By: Darryl Garcia on 04-04-2024 Platelets (Bld) [#/Vol] 257 10*3/uL Normal 150-450 [facility] Comment on above: Performed By: #### H EPACUTE #### [facility] , Potassium [Moles/volume] in Serum or PlasmaOrdered By: Darryl Garcia on 04-04-2024 Potassium [Moles/Vol] 4.7 mmol/L Normal 3.5-5.1 [facility] Comment on above: Performed By: #### H EPACUTE #### [facility] , Protein [Mass/volume] in Uri ne by Test stripOrdered By: Darryl Garcia on 04-04-2024 Protein (U) [Mass/Vol] 20 mg/dL High Negative [facility] Comment on above: Order Comment: Name Collection Type:: Lee Catheter Performed By: #### H EPACUTE #### [facility] , Prothrombin time (PT)Ordered By: Darryl Garcia on 04-04-2024 PT Coag (PPP) [Time] 11.5 s Normal 9.0-12.9 [facility] Comment on above: A hematocrit value g reater than 55% may lead to inaccurate results in coagulation testing. Patients having hematocrit values >55% require a special collection tube for coagulation studies. Please contact the laboratory at [phone] for redraw instructions. Result Comment: A he matocrit value greater than 55% may lead to inaccurate results in coagulation testing. Patients having hematocrit values >55% require a special collection tube for coagulation studies. Please contact the laboratory at [phone] for redraw instructions. Performed By: #### H EPACUTE #### [facility] , Serum or plasma anion gap de terminationOrdered By: Darryl Garcia on 04-04-2024 Anion gap [Moles/Vol] 8.7 mmol/L Normal 6.0-15.0 [facility] Comment on above: Performed By: #### H EPACUTE #### [facility] , Sodium [Moles/volume] in Ser um or PlasmaOrdered By: Darryl Garcia on 04-04-2024 Sodium [Moles/Vol] 139 mmol/L Normal 136-145 [facility] Comment on above: Performed By: #### H EPACUTE #### [facility] , Specific gravity Test strip (U) [Rel density]Ordered By: Darryl Garcia on 04-04-2024 Specific gravity (U) [Rel density] 1.014 1.001-1.030 [facility] Transitional cells [#/area] in Urine by Computer assisted methodOrdered By: Darryl Garcia on 04-04-2024 Transitional cells Computer assisted (U) [#/Area] 1-2 [HPF] 0-1 [facility] Urea nitrogen [Mass/volume] in Serum or PlasmaOrdered By: Darryl Garcia on 04-04-2024 Urea nitrogen [Mass/Vol] 33 mg/dL High 7-25 [facility] Comment on above: Performed By: #### H EPACUTE #### [facility] , Urine Cultureon 04-04-2024 Bacteria identified Cx Nom (U) >100,000 colonies/ml mixed bacterial skin contaminants 2 Days PERFORMED BY: [place] [address] PATHOLOGIST STATEMENT CLERK LUZ MARINA EMANUEL M.D. Normal [facility] Comment on above: Performed By: #### C UU #### [address] Urine appearanceOrdered By: Darryl Garcia on 04-04-2024 Appearance (U) Clear Normal Clear [facility] Comment on above: Order Comment: Name Collection Type:: Lee Catheter Performed By: #### H EPACUTE #### [facility] , Urobilinogen Test strip (U) [Mass/Vol]Ordered By: Darryl Garcia on 04-04-2024 Urobilinogen (U) [Mass/Vol] Normal mg/dL Normal [facility] pH of Urine by Test stripOrd ered By: Darryl Garcia on 04-04-2024 pH (U) 6.5 [pH] Normal 5.0-9.0 [facility] Comment on above: Order Comment: Name Collection Type:: Lee Catheter Performed By: #### H EPACUTE #### [facility] , Consent for Procedure/Surger yon 03-23-2024 Consent for Procedure/Surgery [id number] #1.00TIFF Normal [facility] Consent for Treatmenton 06- Consent for Treatment [id number] #1.00TIFF Normal [facility] IntraOperative Documentson 0 03-23-2024 IntraOperative Documents [id number] #1.00TIFF [facility] IntraOperative Documents [id number] #1.00TIFF [facility] Consent for Procedure/Surger yon 03-03-2024 Consent for Procedure/Surgery [id number] 0#1.00TIFF [facility] Ambulatory Visit Summaryon 0 02-27-2024 Ambulatory Visit Summary LATISHA COSTA :1950 Visit Date:02/27/2024 Ambulatory Visit Instructions Your Diagnosis Feeling of incomplete bladder emptying Urinary retention BPH with urinary obstruction Hydronephrosis Kidney cysts Your Care Team Attending Physician - Rajat AVILA MD Primary Care Physician - DANGELO SCHULER DO This Is Your Medications List ciprofloxacin (Cipro 500 mg Tab) tamsulosin (tamsulosin 0.4 mg Cap) Contact prescribing physician if questions or concerns amlodipine (amLODIPine 10 mg Tab) aspirin (Adult Aspirin) clopidogrel (clopidogrel 75 mg Tab) fluoxetine (FLUoxetine 20 mg Cap) gemfibrozil hydrochlorothiazide (hydrochlorothiazide 25 mg Tab) levothyroxine (levothyroxine 25 mcg (0.025 mg) Tab) Procedures Performed Flexible cystoscope (02/27/2024), Extended radical neck dissection, Tonsillectomy, Vascular surgery. Discharge Vitals Heart Rate (Peripheral) 61 Blood Pressure 142/112 Height 183 cm Height 72 in Weight 105 kg Weight 231 lb BMI 31.35 What to do next You Need to Schedule the Following Appointments Follow Up with DANO TOBAR, ROCHELLE Lee When: Where: [address] [place] [address]- Medications What How Much When Why Instructions Unchanged ciprofloxacin (Cipro 500 mg Tab) 1 Tablets By Mouth Every day Take 1 tablet the day before the procedure Unchanged tamsulosin (tamsulosin 0.4 mg Cap) 1 Capsules By Mouth Every day BPH (benign prostatic hyperplasia) Unchanged amlodipine (amLODIPine 10 mg Tab) Contact prescribing physician if questions or concerns Unchanged aspirin (Adult Aspirin) Contact prescribing physician if questions or concerns Unchanged clopidogrel (clopidogrel 75 mg Tab) Contact prescribing physician if questions or concerns Unchanged fluoxetine (FLUoxetine 20 mg Cap) Contact prescribing physician if questions or concerns Unchanged gemfibrozil By Mouth 2 times a day Contact prescribing physician if questions or concerns Unchanged hydrochlorothiazide (hydrochlorothiazide 25 mg Tab) Contact prescribing physician if questions or concerns Unchanged levothyroxine (levothyroxine 25 mcg (0.025 mg) Tab) Contact prescribing physician if questions or concerns Medications and Immunizations Administered Given lidocaine Top 2% Gel w/Appl 6 mL, 6 mL, Topical. For: Urinary retention, BPH with urinary obstruction Allergies penicillin (Rash) Problems Ongoing - Any problem that you are currently receiving treatment for. 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 Please share your experience with us by completing your survey. We appreciate your feedback and thank you for choosing us for your care. Education Materials Transurethral Resection of the Prostate Transurethral resection of the prostate (TURP) is the removal, or resection, of part of the prostate tissue. This procedure is done to treat an enlarged prostate gland (benign prostatic hyperplasia). The goal of TURP is to remove enough prostate tissue to allow for a normal flow of urine. The procedure will allow you to empty your bladder more completely when you urinate so that you can urinate less often. In a transurethral resection, a thin telescope with a light, a camera, and an electric cutting edge (resectoscope) is passed through the urethra and into the prostate. The opening of the urethra is at the end of the penis. Tell a health care provider about: ? Any allergies you have. ? All medicines you are taking, including vitamins, herbs, eye drops, creams, and xniz-uaf-chdldxn medicines. ? Any problems you or family members have had with anesthetic medicines. ? Any bleeding problems you have. ? Any surgeries you have had. ? Any medical conditions you have. ? Any prostate infections you have had. What are the risks? Generally, this is a safe procedure. However, problems may occur, including: ? Infection. ? Bleeding. ? Allergic reactions to medicines. ? Blood in the urine (hematuria). ? Damage to nearby structures or organs. Other problems may occur, but they are rare. They include: ? Dry ejaculation, or having no semen come out during orgasm. ? Erectile dysfunction, or being unable to have or keep an erection. ? Scarring that leads to narrowing of the urethra. This narrowing may block the flow of urine. ? Inability to control when you urinate (incontinence). ? Deep vein thrombosis. This is a blood clot that can develop in your leg. ? TURP syndrome. This can happen when you lose too much sodium during or after the procedure. (more content not included)... Normal [facility] Patient Educationon 02-27-20 Patient Education Urology Transurethral Resection of the Prostate Transurethral resection of the prostate (TURP) is the removal, or resection, of part of the prostate tissue. This procedure is done to treat an enlarged prostate gland (benign prostatic hyperplasia). The goal of TURP is to remove enough prostate tissue to allow for a normal flow of urine. The procedure will allow you to empty your bladder more completely when you urinate so that you can urinate less often. In a transurethral resection, a thin telescope with a light, a camera, and an electric cutting edge (resectoscope) is passed through the urethra and into the prostate. The opening of the urethra is at the end of the penis. Tell a health care provider about: ? Any allergies you have. ? All medicines you are taking, including vitamins, herbs, eye drops, creams, and mxvs-rov-dmezwpy medicines. ? Any problems you or family members have had with anesthetic medicines. ? Any bleeding problems you have. ? Any surgeries you have had. ? Any medical conditions you have. ? Any prostate infections you have had. What are the risks? Generally, this is a safe procedure. However, problems may occur, including: ? Infection. ? Bleeding. ? Allergic reactions to medicines. ? Blood in the urine (hematuria). ? Damage to nearby structures or organs. Other problems may occur, but they are rare. They include: ? Dry ejaculation, or having no semen come out during orgasm. ? Erectile dysfunction, or being unable to have or keep an erection. ? Scarring that leads to narrowing of the urethra. This narrowing may block the flow of urine. ? Inability to control when you urinate (incontinence). ? Deep vein thrombosis. This is a blood clot that can develop in your leg. ? TURP syndrome. This can happen when you lose too much sodium during or after the procedure. Some signs and symptoms of this condition include: ? Weakness. ? Headaches. ? Nausea or vomiting. ? Muscle cramping. What happens before the procedure? When to stop eating and drinking Follow instructions from your health care provider about what you may eat and drink before your procedure. These may include: ? 8 hours before your procedure ? Stop eating most foods. Do not eat meat, fried foods, or fatty foods. ? Eat only light foods, such as toast or crackers. ? All liquids are okay except energy drinks and alcohol. ? 6 hours before your procedure ? Stop eating. ? Drink only clear liquids, such as water, clear fruit juice, black coffee, plain tea, and sports drinks. ? Do not drink energy drinks or alcohol. ? 2 hours before your procedure ? Stop drinking all liquids. ? You may be allowed to take medicines with small sips of water. If you do not follow your health care provider's instructions, your procedure may be delayed or canceled. Medicines Ask your health care provider about: ? Changing or stopping your regular medicines. This is especially important if you are taking diabetes medicines or blood thinners. ? Taking medicines such as aspirin and ibuprofen. These medicines can thin your blood. Do not take these medicines unless your health care provider tells you to take them. ? Taking vozb-dto-ixacdho medicines, vitamins, herbs, and supplements. Surgery safety Ask your health care provider what steps will be taken to help prevent infection. These steps may include: ? Removing hair at the surgery site. ? Washing skin with a germ-killing soap. ? Taking antibiotic medicine. General instructions ? Do not use any products that contain nicotine or tobacco for at least 4 weeks before the procedure. These products include cigarettes, chewing tobacco, and vaping devices, such as e-cigarettes. If you need help quitting, ask your health care provider. ? If you will be going home right after the procedure, plan to have a responsible adult: ? Take you home from the hospital or clinic. You will not be allowed to drive. ? Care for you for the time you are told. What happens during the procedure? ? An IV will be inserted into one of your veins. ? You will be given one or more of the following: ? A medicine to help you relax (sedative). ? A medicine to make you fall asleep (general anesthetic). ? A medicine that is injected into your spine to numb the area below and slightly above the injection site (spinal anesthetic). ? Your legs will be placed in foot rests (stirrups) so that your legs are apart and your knees are bent. ? The resectoscope will be passed through your urethra to your prostate. ? Parts of your prostate will be resected using the cutting edge of the resectoscope. ? Fluid will be passed to rinse out the cut tissues (irrigation). ? The resectoscope will be removed. ? A small, thin tube (catheter) will be passed through your urethra and into your bladder. The catheter will drain urine into a bag outside of your body. The procedure may vary among health care (more content not included)... Normal [facility] Urology Office/Clinic Noteon 02-27-2024 Urology Office/Clinic Note Chief Complaint Cysto, patient has lee HPI Staff Cystoscopy. Abx taken. patient has lee History of Present Illness Tests reviewed: none. I have reviewed the previous health record information and history for this patient from [facility]. I have reviewed and verified the staff HPI to be accurate for this encounter. There have been no associated fever, chills, flank pain, or blood in the urine. Denies any urinary infections since last encounter. Review of Systems PHQ Score Initial Depression Screen Score: 0 SCORE ROS - Provider Constitutional: denies weight loss, denies hot flashes. Eyes: denies eye problems. Gastrointestinal: denies nausea, denies vomiting. Cardiovascular: denies chest pain or angina. Integumentary: no dryness Musculoskeletal: denies musculoskeletal symptoms. ENMT: denies otolaryngeal symptoms. Respiratory: no shortness of breath. Heme/Lymph: denies easy bleeding tendency, denies easy bruising tendency. Psychiatric: no confusion, no anxiety. Genitourinary: See HPI. Procedure Operative Information Anesthesia Type: Local Procedure: Local Cystoscopy Complications: None Surgical risks, benefits, details of the procedure have been explained to the patient. Full informed consent has been obtained. Intraoperative Information Prepped: Patient is brought back to the endoscopy suite. Patient is placed in supine position. Patient prepped in the usual fashion with Betadine solution. 2% Xylocaine Jelly is placed per Urethra. After waiting several minutes, the Cystoscope is introduced. The Urethra is: Normal The Prostatic Urethra is: obstructing, trilobar fashion, large median lobe, coapting anteriorly. The Bladder: open tics diffusely, catheter cystitis, Trabeculated: Severe (3) The Ureteral orifices: Show efflux of clear urine. Removal: Cystoscope is removed. The patient tolerated it well. Postoperative Information Patient is discharged home with antibiotic coverage. Follow up arranged. Assessment/Plan Last seen by Bess as a new patient 11/25/23 due to [facility] ER f/up. 1. Feeling of incomplete bladder emptying (R39.14: Feeling of incomplete bladder emptying) Patient reports that he was seeing his PCP Dr Schuler at [facility] who noted deteriorating renal function. As result, PCP ordered renal ultrasound. YUDITH 11/21/23 -distended urinary bladder with bilateral hydronephrosis. Bladder obstruction is suspected. Lee catheter decompression should be contemplated. Dr. Schuler recommended ER at that time. [facility] ER 11/25/23 - PVR > 600. Initial Lee output >[address] AP w/o con 11/25/23 - mild to moderate bilateral hydronephrosis is present. There is also mild ureteral dilatation, however no stones. Patient had gross hematuria likely due to traumatic Lee placement, CBI with hospital admission. Followed by nephrology regarding acute kidney injury. Started on Flomax last visit by Bess. Lee changed last IO 02/04/24. Changed IO today. Cysto IO today without complications. Complete prophy abx. Reference procedural section. -Scheduling uro's 2. Urinary retention (R33.9: Retention of urine, unspecified) See #1. 3. BPH with urinary obstruction (N40.1: Benign prostatic hyperplasia with lower urinary tract symptoms) Reports his PCP is checking PSA annually at [facility]. Denies family hx of prostate cancer. -Will schedule TURP. The procedural risks, benefits, details, and treatment alternatives have been discussed with the patient. These include bleeding, infection, need for blood transfusion, continued urinary difficulties, urinary leakage which could be permanent, need for catheter, retrograde ejaculation, scar tissue formation in the urinary channel or area of prostate shaving, erection problems, blood clot formation in the lower extremities which could travel to the lungs, among others. A secondary operation could also be required. Full informed consent has been obtained. Will order General anesthesia. 4. Hydronephrosis (N13.30: Unspecified hydronephrosis) CT AP w/o 11/25/23 - mild to moderate bilateral hydronephrosis w/ mild ureteral dilatation, no stones Lee placed as a result. 11/25/23 creat 4.56 11/25/23 creat 3.06, eGFR 21.025 12/01/23 creat 2.96, eGFR 21.881 Patient reports that he has seen PCP multiple times since discharge with follow-up imaging and lab work. -Cont f/up with PCP 5. Kidney cysts (N28.1: Cyst of kidney, acquired) CT AP w/o 11/25/23 - a couple small exophytic hypodensities at the right kidney, likely cysts. Cortical hypodensities on the left kidney, likely cysts. Follow-up With When Contact Information DANO TOBAR, Rajat Hicks, URL [address] [place], [place] [id number]- Additional Instructions: Schedule Uro's and TURP Patient Education Transurethral Resection of the Prostate Acute Urinary Retention, Male I, Christin Dyson, personally scribed for Dr. Avila on 02/27/2024 15:11:20. Electronically signed by timothy Dyson on (more content not included)... Normal [facility] Comment on above: Result Comment: Elec tronically Signed By: Rajat AVILA MD\.br\Date and Time Signed: 02/27/24 15:13 EDT\.br\Electronically Co-Signed By: Christin Dyson\.br\Date and Time Co-Signed: 02/27/24 15:11 EDT Physician Referralon 2 024 Physician Referral [id number] #1.00TIFF [facility] Provider Letteron 01-26-2024 Provider Letter January 26, 2024 [place] [address] : 1950 Dear Mr. Sepulveda Shorty , [facility] have been trying to reach you with no success to schedule your cystoscopy, bladder scope. It is important that you return our call regarding your appointment as soon receiving this letter. Also, at the time of your call, please provide us with your current information. We have left 2 messages on your voicemail with no response. Thank you for your prompt attention to this matter. Sincerely, [facility], Dr. Rajat Avila option #3 [facility] Consultation Noteon 01-07-20 Consultation Note [id number] 2#1.00TIFF [facility] ED Note-Physicianon 01-07-20 ED Note-Physician [id number] #1.00TIFF [facility] Formson 01-07-2024 Forms [id number] #1.00TIFF [facility] Lab Reportson 01-07-2024 Lab Reports [id number] 9#1.00TIFF [facility] Lab Reports [id number] 7#1.00TIFF [facility] RAD - CT Reporton 01-07-2024 RAD - CT Report [id number] 6#1.00TIFF [facility] RAD - Ultrasound Reporton RAD - Ultrasound Report [id number] 2#1.00TIFF [facility] Auth for Release of Medical Recordson 01-06-2024 Auth for Release of Medical Records [id number] #1.00TIFF Normal [facility] Ambulatory Visit Summaryon 0 01-05-2024 Ambulatory Visit Summary LATISHA COSTA :1950 Visit Date:01/05/2024 Ambulatory Visit Instructions Your Diagnosis Urinary retention BPH (benign prostatic hyperplasia) Hydronephrosis Kidney cysts Your Care Team Attending Physician - SAMMI Duarte APRN, Bess Lynch Primary Care Physician - DANGELO SCHULER DO This Is Your Medications List tamsulosin (tamsulosin 0.4 mg Cap) Contact prescribing physician if questions or concerns amlodipine (amLODIPine 10 mg Tab) aspirin (Adult Aspirin) clopidogrel (clopidogrel 75 mg Tab) fluoxetine (FLUoxetine 20 mg Cap) gemfibrozil hydrochlorothiazide (hydrochlorothiazide 25 mg Tab) levothyroxine (levothyroxine 25 mcg (0.025 mg) Tab) Procedures Performed Extended radical neck dissection, Tonsillectomy, Vascular surgery. Discharge Vitals Temperature (Temporal Artery) 36.2 ?C Heart Rate (Peripheral) 84 Blood Pressure 124/82 Height 183 cm Height 72 in Weight 105 kg Weight 231 lb BMI 31.35 Medications What How Much When Why Instructions New tamsulosin (tamsulosin 0.4 mg Cap) 1 Capsules By Mouth Every day BPH (benign prostatic hyperplasia) Refills: 4 Pickup at [facility] #[id number] Unchanged amlodipine (amLODIPine 10 mg Tab) Contact prescribing physician if questions or concerns Unchanged aspirin (Adult Aspirin) Contact prescribing physician if questions or concerns Unchanged clopidogrel (clopidogrel 75 mg Tab) Contact prescribing physician if questions or concerns Unchanged fluoxetine (FLUoxetine 20 mg Cap) Contact prescribing physician if questions or concerns Unchanged gemfibrozil By Mouth 2 times a day Contact prescribing physician if questions or concerns Unchanged hydrochlorothiazide (hydrochlorothiazide 25 mg Tab) Contact prescribing physician if questions or concerns Unchanged levothyroxine (levothyroxine 25 mcg (0.025 mg) Tab) Contact prescribing physician if questions or concerns Pharmacy Information [id number]: [address] [place], [place] [id number] [phone] Allergies penicillin (Rash) Problems Ongoing - Any problem that you are currently receiving treatment for. 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 Please share your experience with us by completing your survey. We appreciate your feedback and thank you for choosing us for your care. Normal [facility] Patient Educationon 01-05-20 Patient Education Urology Benign Prostatic Hyperplasia Benign prostatic hyperplasia (BPH) is an enlarged prostate gland that is caused by the normal aging process. The prostate may get bigger as a man gets older. The condition is not caused by cancer. The prostate is a walnut-sized gland that is involved in the production of semen. It is located in front of the rectum and below the bladder. The bladder stores urine. The urethra carries stored urine out of the body. An enlarged prostate can press on the urethra. This can make it harder to pass urine. The buildup of urine in the bladder can cause infection. Back pressure and infection may progress to bladder damage and kidney (renal) failure. What are the causes? This condition is part of the normal aging process. However, not all men develop problems from this condition. If the prostate enlarges away from the urethra, urine flow will not be blocked. If it enlarges toward the urethra and compresses it, there will be problems passing urine. What increases the risk? This condition is more likely to develop in men older than 50 years. What are the signs or symptoms? Symptoms of this condition include: ? Getting up often during the night to urinate. ? Needing to urinate frequently during the day. ? Difficulty starting urine flow. ? Decrease in size and strength of your urine stream. ? Leaking (dribbling) after urinating. ? Inability to pass urine. This needs immediate treatment. ? Inability to completely empty your bladder. ? Pain when you pass urine. This is more common if there is also an infection. ? Urinary tract infection (UTI). How is this diagnosed? This condition is diagnosed based on your medical history, a physical exam, and your symptoms. Tests will also be done, such as: ? A post-void bladder scan. This measures any amount of urine that may remain in your bladder after you finish urinating. ? A digital rectal exam. In a rectal exam, your health care provider checks your prostate by putting a lubricated, gloved finger into your rectum to feel the back of your prostate gland. This exam detects the size of your gland and any abnormal lumps or growths. ? An exam of your urine (urinalysis). ? A prostate specific antigen (PSA) screening. This is a blood test used to screen for prostate cancer. ? An ultrasound. This test uses sound waves to electronically produce a picture of your prostate gland. Your health care provider may refer you to a specialist in kidney and prostate diseases (urologist). How is this treated? Once symptoms begin, your health care provider will monitor your condition (active surveillance or watchful waiting). Treatment for this condition will depend on the severity of your condition. Treatment may include: ? Observation and yearly exams. This may be the only treatment needed if your condition and symptoms are mild. ? Medicines to relieve your symptoms, including: ? Medicines to shrink the prostate. ? Medicines to relax the muscle of the prostate. ? Surgery in severe cases. Surgery may include: ? Prostatectomy. In this procedure, the prostate tissue is removed completely through an open incision or with a laparoscope or robotics. ? Transurethral resection of the prostate (TURP). In this procedure, a tool is inserted through the opening at the tip of the penis (urethra). It is used to cut away tissue of the inner core of the prostate. The pieces are removed through the same opening of the penis. This removes the blockage. ? Transurethral incision (TUIP). In this procedure, small cuts are made in the prostate. This lessens the prostate's pressure on the urethra. ? Transurethral microwave thermotherapy (TUMT). This procedure uses microwaves to create heat. The heat destroys and removes a small amount of prostate tissue. ? Transurethral needle ablation (TUNA). This procedure uses radio frequencies to destroy and remove a small amount of prostate tissue. ? Interstitial laser coagulation (ILC). This procedure uses a laser to destroy and remove a small amount of prostate tissue. ? Transurethral electrovaporization (TUVP). This procedure uses electrodes to destroy and remove a small amount of prostate tissue. ? Prostatic urethral lift. This procedure inserts an implant to push the lobes of the prostate away from the urethra. Follow these instructions at home: ? Take ywfx-yef-wsrbflz and prescription medicines only as told by your health care provider. ? Monitor your symptoms for any changes. Contact your health care provider with any changes. ? Avoid drinking large amounts of liquid before going to bed or out in public. ? Avoid or reduce how much caffeine or alcohol you drink. ? Give yourself time when you urinate. ? Keep all follow-up visits. This is important. Contact a health care provider if: ? You have unexplained back pain. ? Your symptoms do not get better with treatment. ? You develop side effects from the medicine (more content not included)... Normal [facility] Urology Office/Clinic Noteon 01-05-2024 Urology Office/Clinic Note Chief Complaint F/U from [facility] from Lee placed due to urinary retention HPI Staff New Pt. Pt was seen at [facility] on 11/25/23 due to distended urinary bladder w/bilateral hydronephrosis, pt has Lee- For urinary retention CT SCAN 11/25/23, YUDITH 11/21/23 BUN 36, Creatinine 2.96 12/01/23. BUN 37, Creatinine 3.06 11/30/23 No pain or burning, No blood seen in bag IPSS N/A History of Present Illness I have reviewed and verified the staff HPI to be accurate for this encounter. Portions of this record may have been created with voice recognition artificial intelligence software, specifically [employer], [employer] and or [employer]. Substitutions may have occurred due to the inherent limitations of voice recognition and artificial intelligence software. Review of Systems PHQ Score Initial Depression Screen Score: 0 SCORE Physical Exam Vitals & Measurements T: 36.2 ?C(Temporal Artery) HR: 84(Peripheral) BP: 124/82 HT: 72 in HT: 183 cm WT: 105 kg WT: 231 lb BMI: 31.35 General: Well developed, well nourished, in no acute distress. Genitourinary: normal scrotum, normal testes, normal urethra, normal epididymis, normal vas deferens/spermatic cord. Flank Pain: none. Bladder: nonpalpable. Penis: normal shaft, normal glans. Assessment/Plan 1. BPH (benign prostatic hyperplasia) (N40.0: Benign prostatic hyperplasia without lower urinary tract symptoms) Reports that he has previously not had any issues urinating. Reports every 2 to 3-hour frequency, no urgency, possible weak stream, no intermittency. Reports that he has previously always felt empty after voiding. - See #2 - Start tamsulosin 0.4 mg daily Ordered: tamsulosin, 0.4 mg = 1 cap(s), Oral, Daily, # 30 cap(s), Refills(s) 4, Pharmacy: [facility] #[id number], 183, cm, 01/05/24 13:42:00 EDT, Height/Length Dosing, 105, kg, 01/05/24 13:42:00 EDT, Weight Dosing 2. Urinary retention (R33.9: Retention of urine, unspecified) Patient reports that he was seeing his PCP Dr Schuler at [facility] who noted deteriorating renal function. As result, PCP ordered renal ultrasound. YUDITH 11/21/23 -distended urinary bladder with bilateral hydronephrosis. Bladder obstruction is suspected. Lee catheter decompression should be contemplated. Dr Schuler recommended ER at that time. [facility] ER 11/25/23 - PVR > 600. Initial Lee output >[address] AP w/o con 11/25/23 - mild to moderate bilateral hydronephrosis is present. There is also mild ureteral dilatation, however no stones. Patient had gross hematuria likely due to traumatic Lee placement, CBI with hospital admission. Followed by nephrology regarding acute kidney injury. Discussed with patient at length male urologic anatomy and how the prostate is likely contributing to urinary retention. Also discussed escalating retention and its effect on kidney function. Discussed use of prostate medications to chemically relax prostate and optimize urination. Discussed most common side effects including lightheadedness/dizz iness. Patient is agreeable to start medication. Start tamsulosin 0.4 mg daily. Rx sent to pharmacy. Patient to call office to report any intolerable side effects. Discussed need for further evaluation including cystoscopy to visualize urinary channel as well as bladder. May also be beneficial to have urodynamic studies in the future to assess bladder function. The risks and benefits for cystoscopy have been discussed. The risks include bleeding, infection, and irritation of the bladder and urinary channel, among others. The patient, after being informed of procedural details and after questions have been answered, wishes to proceed. Will order Local anesthesia. Recommend keeping Lee catheter at this time to continue bladder decompression until cystoscopic evaluation. Patient agrees, all questions regarding catheter were answered. Lee catheter exchanged in office today without issues. Patient will need every 4 week Lee exchanges if scheduling out further for cystoscopy. - Start tamsulosin 0.4 mg daily. - Schedule cystoscopy. Non Destructive Evaluation Technician will call patient. Ordered: Insertion of temp indwelling bladder cath (lee) simple [id number] 3. Hydronephrosis (N13.30: Unspecified hydronephrosis) CT AP w/o 11/25/23 - mild to moderate bilateral hydronephrosis w/ mild ureteral dilatation, no stones Lee placed as a result. 11/25/23 creat 4.56 11/25/23 creat 3.06, eGFR 21.025 12/01/23 creat 2.96, eGFR 21.881 Patient reports that he has seen PCP multiple times since discharge with follow-up imaging and lab work. - Continue to follow w/ PCP 4. Kidney cysts (N28.1: Cyst of kidney, acquired) CT AP w/o 11/25/23 - a couple small exophytic hypodensities at the right kidney, likely cysts. Cortical hypodensities on the left kidney, likely cysts. 5. Prostate cancer screening (Z12.5: Encounter for screening for malignant neoplasm of prostate) Patient reports that his PCP is checking PSA annually at [facility]. Wi (more content not included)... Normal [facility] Comment on above: Result Comment: Elec tronically Signed By: SAMMI Duarte APRN, [place] X\.perlita\Date and Time Signed: 01/05/24 16:[address] chest wo thu 12-18-2023 CT chest wo [facility] [place] [address] CT Scan Report Signed Patient: Latisha Costa MR#: [id number] 1996 : 1950 Acct:[id number] Age/Sex: 73 / M ADM Date: 12/18/23 Loc: CT Room: Type: [facility] Attending Dr: Dangelo Schuler DO Copies to: Dangelo Schuler DO Ordering Provider: Dangelo Schuler DO Date of Service: 12/18/23 CT/CT chest wo con: EVALUATE AORTA,POSSIBLE THORACIC ANEURYSM CT CHEST WITHOUT IV CONTRAST: CLINICAL HISTORY: Possible thoracic aortic aneurysm. COMPARISON: Chest 02/22/2021 TECHNIQUE: Spiral images were obtained through the chest without IV contrast. This CT exam was performed using one or more following dose reduction techniques: Automated exposure control, adjustment of the mA and/or kV according to patient size, or use of iterative reconstruction technique. FINDINGS: Mediastinum:Thoracic aorta demonstrates mild calcification with aneurysmal dilatation of the ascending thoracic aorta measuring 5 cm. This tapers at level of the aortic arch with a normal caliber descending thoracic aorta. Pulmonary trunk appears nondilated. No pericardial effusion. Calcified mediastinal and hilar lymph nodes. The esophagus is grossly unremarkable. Lungs:Bibasilar scarring. No consolidation pneumothorax or pleural effusion. Calcified granulomas. Abd:Cholelithiasis. Soft tissues/Bones: Soft tissue surrounding the chest wall demonstrate no acute findings. Osseous structures demonstrate degenerative change. CT/CT chest wo con IMPRESSION: Aneurysmal dilatation of the ascending thoracic aorta measuring 5 cm. Impression dictated by: Donny Angel Jr., D.O.12/18/2023 2:20 PM Dictation Location: [place] [address] Transcribed By: [facility] 12/18/23 1420 Dictated By: Donny Angel Jr, DO 12/18/23 1418 Signed By: 12/18/23 1420 Normal [facility] US venous duplex UE RTon US venous duplex UE RT [facility] [place] [address] Ultrasound Report Signed Patient: Latisha Costa MR#: [id number] 1996 : 1950 Acct:[id number] Age/Sex: 73 / M ADM Date: 12/04/23 Loc: ER Room: Type: [facility] ER Attending Dr: Ordering Provider: SAMMI Duvall Date of Service: 12/04/23 US/US venous duplex UE RT: recent IV redness swelling Copies to: Beatriz E Bullimore, MANAGER [employer] VENOUS DUPLEX RIGHT UPPER EXTREMITY INDICATION: Right arm swelling and pain. PROCEDURE: Color-flow duplex scanning is used to interrogate the deep venous system of the Right upper extremity. Compression, Color flow and Augmentation were all normal for the deep veins of the right arm. In the contralateral limb, the subclavian vein appears with color flow and augmentation. Thrombus was identified in the right arm cephalic vein. This does appear acute. US/US venous duplex UE RT IMPRESSION: NO EVIDENCE OF DVT IN THE RIGHT ARM. Superficial thrombus was identified in the cephalic vein. Impression dictated by: Kevin Moreno MD12/05/2023 10:46 AM Dictation Location: RAD-DOC-04 Tech: Lakshmi Maximino Transcribed By: [facility] 12/05/23 1046 Dictated By: Kevin Moreno MD 12/05/231043 Signed By: 12/05/23 [address] [facility] Consultation Noteon 12-02-19 Consultation Note [id number] #1.00TIFF Normal [facility] RAD - CT Reporton 12-02-2023 RAD - CT Report [id number] #1.00TIFF Normal [facility] XR FINGERS 2+ VIEWS RIGHTon 12-02-2023 XR FINGERS 2+ VIEWS RIGHT EXAMINATION: XR FINGERS 2+ VIEWS RIGHT, 12/02/2023 10:45 AM CLINICAL HISTORY: Right middle finger pain COMPARISON: None HAND FINDINGS: There are no lytic or sclerotic bone lesions. There is no acute fracture or subluxation. There is joint space narrowing and there are subchondral cysts of the distal interphalangeal joints likely secondary to osteoarthritis. The soft tissues are within normal limits. There are no radiopaque foreign bodies. IMPRESSION: There are degenerative changes of the DIP joints likely secondary to osteoarthritis. ELECTRONICALLY SIGNED BY: Jermaine Iqbal MD Normal Not Available XR Finger - right 2 Viewson 12-02-2023 There are degenerative changes of the DIP joints likely secondary to osteoarthritis. ELECTRONICALLY SIGNED BY: Jermaine Iqbal MD IMAGING EXAMINATION: XR FINGERS 2+ VIEWS RIGHT, 12/02/2023 10:45 AM CLINICAL HISTORY: Right middle finger pain COMPARISON: None HAND FINDINGS: There are no lytic or sclerotic bone lesions. There is no acute fracture or subluxation. There is joint space narrowing and there are subchondral cysts of the distal interphalangeal joints likely secondary to osteoarthritis. The soft tissues are within normal limits. There are no radiopaque foreign bodies. IMAGING Jermaine Iqbal MD - 12/02/2023 EXAMINATION: XR FINGERS 2+ VIEWS RIGHT, 12/02/2023 10:45 AM CLINICAL HISTORY: Right middle finger pain COMPARISON: None HAND FINDINGS: There are no lytic or sclerotic bone lesions. There is no acute fracture or subluxation. There is joint space narrowing and there are subchondral cysts of the distal interphalangeal joints likely secondary to osteoarthritis. The soft tissues are within normal limits. There are no radiopaque foreign bodies. IMPRESSION: There are degenerative changes of the DIP joints likely secondary to osteoarthritis. ELECTRONICALLY SIGNED BY: Jermaine Iqbal MD [facility] Radiology Study observation (narrative) [facility] XR Finger - right 2 ViewsOrd ered By: Jermaine Iqbal on 12-02-2023 [facility] Work Phone: Basic Metabolic Panelon 11-20 Anion gap [Moles/Vol] 11.5 mmol/L Normal 6.0-15.0 [facility] Comment on above: Performed By: #### P TT, PT #### [facility] [address] [place] [address] [place] Calcium [Mass/Vol] 8.3 mg/dL Low 8.6-10.3 [facility] Comment on above: Performed By: #### P TT, PT #### [facility] [address] [place] [id number] [place] Chloride [Moles/Vol] 106 mmol/L Normal 98-107 [facility] Comment on above: Performed By: #### P TT, PT #### [facility] [address] [place] [id number] [place] CO2 [Moles/Vol] 28.1 mmol/L Normal 21.0-31.0 [facility] Comment on above: Performed By: #### P TT, PT #### [place] [address] [place] Creatinine [Mass/Vol] 2.96 mg/dL High 0.70-1.30 [facility] Comment on above: Performed By: #### P TT, PT #### [place] [address] [place] Creatinine Clr Calc Pharmacy 28.96 Normal [facility] Comment on above: Result Comment: PERF ORMED BY: [place] [address] PATHOLOGIST STATEMENT CLERK LUZ MARINA EMANUEL M.D. Performed By: #### P TT, PT #### [place] [address] [place] GFR/1.73 sq M.predicted MDRD (S/P/Bld) [Vol rate/Area] 21.881 mL/min/{1.73_m2} Normal [facility] Comment on above: Performed By: #### P TT, PT #### [address] Glucose [Mass/Vol] 88 mg/dL Normal 70-100 [facility] Comment on above: Result Comment: [place] Glucose Reference Range is dependent on time and content of last meal. Glucose of more than 200 mg/dL in a nonstressed, ambulatory subject supports the diagnosis of Diabetes Mellitus. ADA recommended reference range Performed By: #### P TT, PT #### [place] [address] [place] Potassium [Moles/Vol] 4.6 mmol/L Normal 3.5-5.1 [facility] Comment on above: Performed By: #### P TT, PT #### [place] [address] [place] Sodium [Moles/Vol] 141 mmol/L Normal 136-145 [facility] Comment on above: Performed By: #### P TT, PT #### [place] [address] [place] Urea nitrogen [Mass/Vol] 36 mg/dL High 7-25 [facility] Comment on above: Performed By: #### P TT, PT #### [address] Complete Blood Count Auto Di ffon 12-01-2023 Basophils (Bld) [#/Vol] 0.1 10*3/uL Normal 0.0-0.2 [facility] Comment on above: Result Comment: PERF ORMED BY: [place] [address] PATHOLOGIST STATEMENT CLERK LUZ MARINA EMANUEL M.D. Performed By: #### P TT, PT #### [address] Basophils/100 WBC (Bld) 1.0 % Normal . [facility] Comment on above: Performed By: #### P TT, PT #### [address] Eosinophils (Bld) [#/Vol] 0.4 10*3/uL Normal 0.0-0.45 [facility] Comment on above: Performed By: #### P TT, PT #### [address] Eosinophils/100 WBC (Bld) 3.2 % Normal . [facility] Comment on above: Performed By: #### P TT, PT #### [address] Erythrocyte distribution width (RBC) [Ratio] 13.6 % Normal 12.0-14.8 [facility] Comment on above: Performed By: #### P TT, PT #### [address] Hematocrit (Bld) [Volume fraction] 24.9 % Low 38.8-50.0 [facility] Comment on above: Performed By: #### P TT, PT #### [address] Hemoglobin (Bld) [Mass/Vol] 8.5 g/dL Low 13.0-17.0 [facility] Comment on above: Performed By: #### P TT, PT #### [address] Lymphocytes (Bld) [#/Vol] 1.0 10*3/uL Normal 1.00-4.8 [facility] Comment on above: Performed By: #### P TT, PT #### [address] Lymphocytes/100 WBC (Bld) 9.5 % Normal . [facility] Comment on above: Performed By: #### P TT, PT #### [address] MCH (RBC) [Entitic mass] 32.2 pg Normal 27.5-35.2 [facility] Comment on above: Performed By: #### P TT, PT #### [address] MCV (RBC) [Entitic vol] 93.9 fL Normal 83.5-101 [facility] Comment on above: Performed By: #### P TT, PT #### [address] Mean Corpuscular HGB Conc 34.3 g/dL Normal 32.5-35.6 [facility] Comment on above: Performed By: #### P TT, PT #### [address] Monocytes (Bld) [#/Vol] 1.4 10*3/uL High 0.0-0.8 [facility] Comment on above: Performed By: #### P TT, PT #### [place] [address] [place] Monocytes/100 WBC (Bld) 12.6 % Normal . [facility] Comment on above: Performed By: #### P TT, PT #### [address] Neutrophils (Bld) [#/Vol] 8.0 10*3/uL High 1.8-7.7 [facility] Comment on above: Performed By: #### P TT, PT #### [address] Neutrophils/100 WBC (Bld) 73.7 % Normal . [facility] Comment on above: Performed By: #### P TT, PT #### [address] NRBC% 0.1 /100{WBC} Normal 0-0.5 [facility] Comment on above: Performed By: #### P TT, PT #### [address] Platelet mean volume (Bld) [Entitic vol] 7.7 fL Normal 6.6-10.1 [facility] Comment on above: Performed By: #### P TT, PT #### [address] Platelets (Bld) [#/Vol] 323 10*3/uL Normal 150-450 [facility] Comment on above: Performed By: #### P TT, PT #### [address] RBC (Bld) [#/Vol] 2.65 10*6/uL Low 3.90-5.60 [facility] Comment on above: Performed By: #### P TT, PT #### [address] WBC (Bld) [#/Vol] 10.9 10*3/uL High 4.1-10.5 [facility] Comment on above: Performed By: #### P TT, PT #### [address] Basic Metabolic Panelon 11-20 Anion gap [Moles/Vol] 10.0 mmol/L Normal 6.0-15.0 [facility] Comment on above: Performed By: #### U NA #### [address] Calcium [Mass/Vol] 8.5 mg/dL Low 8.6-10.3 [facility] Comment on above: Performed By: #### U NA #### [address] Chloride [Moles/Vol] 105 mmol/L Normal 98-107 [facility] Comment on above: Performed By: #### U NA #### [address] CO2 [Moles/Vol] 26.7 mmol/L Normal 21.0-31.0 [facility] Comment on above: Performed By: #### U NA #### [address] Creatinine [Mass/Vol] 3.06 mg/dL High 0.70-1.30 [facility] Comment on above: Performed By: #### U NA #### [address] Creatinine Clr Calc Pharmacy 27.76 Normal [facility] Comment on above: Result Comment: PERF ORMED BY: [place] [address] PATHOLOGIST STATEMENT CLERK LUZ MARINA EMANUEL M.D. Performed By: #### U NA #### [address] GFR/1.73 sq M.predicted MDRD (S/P/Bld) [Vol rate/Area] 21.025 mL/min/{1.73_m2} Normal [facility] Comment on above: Performed By: #### U NA #### [address] Glucose [Mass/Vol] 88 mg/dL Normal 70-100 [facility] Comment on above: Result Comment: [place] Glucose Reference Range is dependent on time and content of last meal. Glucose of more than 200 mg/dL in a nonstressed, ambulatory subject supports the diagnosis of Diabetes Mellitus. ADA recommended reference range Performed By: #### U NA #### [address] Potassium [Moles/Vol] 3.7 mmol/L Normal 3.5-5.1 [facility] Comment on above: Performed By: #### U NA #### [address] Sodium [Moles/Vol] 138 mmol/L Normal 136-145 [facility] Comment on above: Performed By: #### U NA #### [address] Urea nitrogen [Mass/Vol] 37 mg/dL High 7-25 [facility] Comment on above: Performed By: #### U NA #### [address] Complete Blood Count Auto Di ffon 11-30-2023 Basophils (Bld) [#/Vol] 0.1 10*3/uL Normal 0.0-0.2 [facility] Comment on above: Result Comment: PERF ORMED BY: [place] [address] PATHOLOGIST STATEMENT CLERK LUZ MARINA EMANUEL M.D. Performed By: #### U NA #### [address] Basophils/100 WBC (Bld) 1.0 % Normal . [facility] Comment on above: Performed By: #### U NA #### [address] Eosinophils (Bld) [#/Vol] 0.4 10*3/uL Normal 0.0-0.45 [facility] Comment on above: Performed By: #### U NA #### [address] Eosinophils/100 WBC (Bld) 3.7 % Normal . [facility] Comment on above: Performed By: #### U NA #### [address] Erythrocyte distribution width (RBC) [Ratio] 13.5 % Normal 12.0-14.8 [facility] Comment on above: Performed By: #### U NA #### [address] Hematocrit (Bld) [Volume fraction] 25.7 % Low 38.8-50.0 [facility] Comment on above: Performed By: #### U NA #### [address] Hemoglobin (Bld) [Mass/Vol] 8.8 g/dL Low 13.0-17.0 [facility] Comment on above: Performed By: #### U NA #### [address] Lymphocytes (Bld) [#/Vol] 1.0 10*3/uL Normal 1.00-4.8 [facility] Comment on above: Performed By: #### U NA #### [address] Lymphocytes/100 WBC (Bld) 9.5 % Normal . [facility] Comment on above: Performed By: #### U NA #### [address] MCH (RBC) [Entitic mass] 31.7 pg Normal 27.5-35.2 [facility] Comment on above: Performed By: #### U NA #### [address] MCV (RBC) [Entitic vol] 93.2 fL Normal 83.5-101 [facility] Comment on above: Performed By: #### U NA #### [address] Mean Corpuscular HGB Conc 34.0 g/dL Normal 32.5-35.6 [facility] Comment on above: Performed By: #### U NA #### [address] Monocytes (Bld) [#/Vol] 1.3 10*3/uL High 0.0-0.8 [facility] Comment on above: Performed By: #### U NA #### [address] Monocytes/100 WBC (Bld) 11.8 % Normal . [facility] Comment on above: Performed By: #### U NA #### [address] Neutrophils (Bld) [#/Vol] 8.0 10*3/uL High 1.8-7.7 [facility] Comment on above: Performed By: #### U NA #### [address] Neutrophils/100 WBC (Bld) 74.0 % Normal . [facility] Comment on above: Performed By: #### U NA #### [address] NRBC% 0.1 /100{WBC} Normal 0-0.5 [facility] Comment on above: Performed By: #### U NA #### [address] Platelet mean volume (Bld) [Entitic vol] 7.9 fL Normal 6.6-10.1 [facility] Comment on above: Performed By: #### U NA #### [address] Platelets (Bld) [#/Vol] 299 10*3/uL Normal 150-450 [facility] Comment on above: Performed By: #### U NA #### [address] RBC (Bld) [#/Vol] 2.76 10*6/uL Low 3.90-5.60 [facility] Comment on above: Performed By: #### U NA #### [address] WBC (Bld) [#/Vol] 10.8 10*3/uL High 4.1-10.5 [facility] Comment on above: Performed By: #### U NA #### [address] Magnesiumon 11-30-2023 Magnesium [Mass/Vol] 1.7 mg/dL Low 1.9-2.7 [facility] Comment on above: Result Comment: PERF ORMED BY: [address] [place] [address] PATHOLOGIST STATEMENT CLERK LUZ MARINA EMANUEL M.D. Performed By: #### U NA #### [address] Phosphoruson 11-30-2023 Phosphate [Mass/Vol] 3.5 mg/dL Normal 2.5-4.5 [facility] Comment on above: Performed By: #### U NA #### [address] Basic Metabolic Panelon 11-20 Anion gap [Moles/Vol] 10.8 mmol/L Normal 6.0-15.0 [facility] Comment on above: Performed By: #### U NA #### [address] Calcium [Mass/Vol] 8.9 mg/dL Normal 8.6-10.3 [facility] Comment on above: Performed By: #### U NA #### [address] Chloride [Moles/Vol] 102 mmol/L Normal 98-107 [facility] Comment on above: Performed By: #### U NA #### [address] CO2 [Moles/Vol] 29.2 mmol/L Normal 21.0-31.0 [facility] Comment on above: Performed By: #### U NA #### [address] Creatinine [Mass/Vol] 3.41 mg/dL High 0.70-1.30 [facility] Comment on above: Performed By: #### U NA #### [address] Creatinine Clr Calc Pharmacy 24.55 Normal [facility] Comment on above: Result Comment: PERF ORMED BY: [place] [address] PATHOLOGIST STATEMENT CLERK LUZ MARINA EMANUEL M.D. Performed By: #### U NA #### [address] GFR/1.73 sq M.predicted MDRD (S/P/Bld) [Vol rate/Area] 18.463 mL/min/{1.73_m2} Normal [facility] Comment on above: Performed By: #### U NA #### [address] Glucose [Mass/Vol] 91 mg/dL Normal 70-100 [facility] Comment on above: Result Comment: [facility] Glucose Reference Range is dependent on time and content of last meal. Glucose of more than 200 mg/dL in a nonstressed, ambulatory subject supports the diagnosis of Diabetes Mellitus. ADA recommended reference range Performed By: #### U NA #### [address] Potassium [Moles/Vol] 4.0 mmol/L Normal 3.5-5.1 [facility] Comment on above: Performed By: #### U NA #### [address] Sodium [Moles/Vol] 138 mmol/L Normal 136-145 [facility] Comment on above: Performed By: #### U NA #### [address] Urea nitrogen [Mass/Vol] 39 mg/dL High 7-25 [facility] Comment on above: Performed By: #### U NA #### [address] Complete Blood Count Auto Di ffon 11-29-2023 Basophils (Bld) [#/Vol] 0.1 10*3/uL Normal 0.0-0.2 [facility] Comment on above: Result Comment: PERF ORMED BY: [place] [address] PATHOLOGIST STATEMENT CLERK LUZ MARINA EMANUEL M.D. Performed By: #### U NA #### [place] [address] [place] Basophils/100 WBC (Bld) 0.9 % Normal . [facility] Comment on above: Performed By: #### U NA #### [address] Eosinophils (Bld) [#/Vol] 0.3 10*3/uL Normal 0.0-0.45 [facility] Comment on above: Performed By: #### U NA #### [address] Eosinophils/100 WBC (Bld) 2.7 % Normal . [facility] Comment on above: Performed By: #### U NA #### [address] Erythrocyte distribution width (RBC) [Ratio] 13.3 % Normal 12.0-14.8 [facility] Comment on above: Performed By: #### U NA #### [address] Hematocrit (Bld) [Volume fraction] 26.6 % Low 38.8-50.0 [facility] Comment on above: Performed By: #### U NA #### [address] Hemoglobin (Bld) [Mass/Vol] 9.0 g/dL Low 13.0-17.0 [facility] Comment on above: Performed By: #### U NA #### [address] Lymphocytes (Bld) [#/Vol] 1.3 10*3/uL Normal 1.00-4.8 [facility] Comment on above: Performed By: #### U NA #### [address] Lymphocytes/100 WBC (Bld) 10.5 % Normal . [facility] Comment on above: Performed By: #### U NA #### [address] MCH (RBC) [Entitic mass] 31.5 pg Normal 27.5-35.2 [facility] Comment on above: Performed By: #### U NA #### [address] MCV (RBC) [Entitic vol] 93.0 fL Normal 83.5-101 [facility] Comment on above: Performed By: #### U NA #### [address] Mean Corpuscular HGB Conc 33.9 g/dL Normal 32.5-35.6 [facility] Comment on above: Performed By: #### U NA #### [address] Monocytes (Bld) [#/Vol] 1.2 10*3/uL High 0.0-0.8 [facility] Comment on above: Performed By: #### U NA #### [address] Monocytes/100 WBC (Bld) 9.4 % Normal . [facility] Comment on above: Performed By: #### U NA #### [address] Neutrophils (Bld) [#/Vol] 9.8 10*3/uL High 1.8-7.7 [facility] Comment on above: Performed By: #### U NA #### [address] Neutrophils/100 WBC (Bld) 76.5 % Normal . [facility] Comment on above: Performed By: #### U NA #### [address] NRBC% 0.0 /100{WBC} Normal 0-0.5 [facility] Comment on above: Performed By: #### U NA #### [address] Platelet mean volume (Bld) [Entitic vol] 7.8 fL Normal 6.6-10.1 [facility] Comment on above: Performed By: #### U NA #### [address] Platelets (Bld) [#/Vol] 292 10*3/uL Normal 150-450 [facility] Comment on above: Performed By: #### U NA #### [address] RBC (Bld) [#/Vol] 2.86 10*6/uL Low 3.90-5.60 [facility] Comment on above: Performed By: #### U NA #### [place] [address] [place] WBC (Bld) [#/Vol] 12.8 10*3/uL High 4.1-10.5 [facility] Comment on above: Performed By: #### U NA #### [address] Dipstick and Microscopicon 0 11-29-2023 Appearance (U) Clear Normal Clear [facility] Comment on above: Order Comment: Name Collection Type:: Lee Catheter Performed By: #### P TT, PT #### [address] Bacteria,Urine None Seen Normal None Seen [facility] Comment on above: Order Comment: Name Collection Type:: Lee Catheter Performed By: #### P TT, PT #### [address] Bilirubin,Urine Negative Normal Negative [facility] Comment on above: Order Comment: Name Collection Type:: Lee Catheter Performed By: #### P TT, PT #### [address] Color (U) [place] Critically abnormal Yellow [facility] Comment on above: Order Comment: Name Collection Type:: Lee Catheter Performed By: #### P TT, PT #### [address] Glucose Ql (U) Normal Normal Normal [facility] Comment on above: Order Comment: Name Collection Type:: Lee Catheter Performed By: #### P TT, PT #### [place] [address] [place] Hyaline Casts,Urine 0-8 Normal 0-8 [facility] Comment on above: Order Comment: Name Collection Type:: Lee Catheter Result Comment: PERF ORMED BY: [place] [address] PATHOLOGIST STATEMENT CLERK LUZ MARINA EMANUEL M.D. Performed By: #### P TT, PT #### [facility] [address] [place] [id number] [place] Ketones Ql (U) Negative Normal Negative [facility] Comment on above: Order Comment: Name Collection Type:: Lee Catheter Performed By: #### P TT, PT #### [place] [address] [place] Leukocyte esterase Test strip Ql (U) 2+ High Negative [facility] Comment on above: Order Comment: Name Collection Type:: Lee Catheter Performed By: #### P TT, PT #### [place] [address] [place] Nitrite,Urine Negative Normal Negative [facility] Comment on above: Order Comment: Name Collection Type:: Lee Catheter Performed By: #### P TT, PT #### [place] [address] [place] Occult Blood,Urine 3+ High Negative [facility] Comment on above: Order Comment: Name Collection Type:: Lee Catheter Result Comment: PERF ORMED BY: [place] [address] PATHOLOGIST STATEMENT CLERK LUZ MARINA EMANUEL M.D. Performed By: #### P TT, PT #### [place] [address] [place] pH (U) 7.0 [pH] Normal 5.0-9.0 [facility] Comment on above: Order Comment: Name Collection Type:: Lee Catheter Performed By: #### P TT, PT #### [place] [id number] [place] Protein (U) [Mass/Vol] 100 mg/dL High Negative [facility] Comment on above: Order Comment: Name Collection Type:: Lee Catheter Performed By: #### P TT, PT #### [facility] [address] [place] [address] [place] RBC,Urine Innumerable High 0-4 [facility] Comment on above: Order Comment: Name Collection Type:: Lee Catheter Performed By: #### P TT, PT #### [address] Specificy [place],Urine 1.009 Normal 1.001-1.030 [facility] Comment on above: Order Comment: Name Collection Type:: Lee Catheter Performed By: #### P TT, PT #### [address] Squamous Epithelial Cell,Urine 1-2 Normal 0-2 [facility] Comment on above: Order Comment: Name Collection Type:: Lee Catheter Performed By: #### P TT, PT #### [address] Urobilinogen,Urine Normal Normal Normal [facility] Comment on above: Order Comment: Name Collection Type:: Lee Catheter Performed By: #### P TT, PT #### [place] [address] [place] WBC,Urine 10-19 High 0-4 [facility] Comment on above: Order Comment: Name Collection Type:: Lee Catheter Performed By: #### P TT, PT #### [address] Glucose Poct Glucometerson 0 - Commemt1 Glu2: Cleaned Meter Normal [facility] Comment on above: Result Comment: PERF ORMED BY: [place] [address] PATHOLOGIST STATEMENT CLERK LUZ MARINA EMANUEL M.D. Performed By: #### U NA #### [address] Glucose [Mass/Vol] 103 mg/dL Normal [facility] Comment on above: Result Comment: [place] Glucose Reference Range is dependent on time and content of last meal. Glucose of more than 200 mg/dL in a nonstressed, ambulatory subject supports the diagnosis of Diabetes Mellitus. Performed By: #### U NA #### [address] Urine Cultureon 11-29-2023 Bacteria identified Cx Nom (U) No Growth 2 Days PERFORMED BY: [place] [address] PATHOLOGIST STATEMENT CLERK LUZ MARINA EMANUEL M.D. Normal [facility] Comment on above: Performed By: #### P TT, PT #### [address] Basic Metabolic Panelon Anion gap [Moles/Vol] 12.8 mmol/L Normal 6.0-15.0 [facility] Comment on above: Performed By: #### P TT, PT #### [address] Calcium [Mass/Vol] 8.2 mg/dL Low 8.6-10.3 [facility] Comment on above: Performed By: #### P TT, PT #### [address] Chloride [Moles/Vol] 104 mmol/L Normal 98-107 [facility] Comment on above: Performed By: #### P TT, PT #### [address] CO2 [Moles/Vol] 27.0 mmol/L Normal 21.0-31.0 [facility] Comment on above: Performed By: #### P TT, PT #### [address] Creatinine [Mass/Vol] 3.70 mg/dL Significant change up 0.70-1.30 [facility] Comment on above: Performed By: #### P TT, PT #### [address] Creatinine Clr Calc Pharmacy 22.47 Normal [facility] Comment on above: Result Comment: PERF ORMED BY: [place] [address] PATHOLOGIST STATEMENT CLERK LUZ MARINA EMANUEL M.D. Performed By: #### P TT, PT #### [facility] [address] [place] [address] [place] GFR/1.73 sq M.predicted MDRD (S/P/Bld) [Vol rate/Area] 16.741 mL/min/{1.73_m2} Normal [facility] Comment on above: Performed By: #### P TT, PT #### [facility] [address] Glucose [Mass/Vol] 85 mg/dL Normal 70-100 [facility] Comment on above: Result Comment: [facility] Glucose Reference Range is dependent on time and content of last meal. Glucose of more than 200 mg/dL in a nonstressed, ambulatory subject supports the diagnosis of Diabetes Mellitus. ADA recommended reference range Performed By: #### P TT, PT #### [facility] [address] Potassium [Moles/Vol] 3.8 mmol/L Normal 3.5-5.1 [facility] Comment on above: Performed By: #### P TT, PT #### [facility] [address] Sodium [Moles/Vol] 140 mmol/L Normal 136-145 [facility] Comment on above: Performed By: #### P TT, PT #### [facility] [address] Urea nitrogen [Mass/Vol] 40 mg/dL High 7-25 [facility] Comment on above: Performed By: #### P TT, PT #### [facility] [address] Hemogram CBC Without Diffon 11-28-2023 Erythrocyte distribution width (RBC) [Ratio] 13.5 % Normal 12.0-14.8 [facility] Comment on above: Performed By: #### P TT, PT #### [facility] [address] Hematocrit (Bld) [Volume fraction] 25.5 % Low 38.8-50.0 [facility] Comment on above: Performed By: #### P TT, PT #### [address] Hemoglobin (Bld) [Mass/Vol] 8.6 g/dL Low 13.0-17.0 [facility] Comment on above: Performed By: #### P TT, PT #### [address] MCH (RBC) [Entitic mass] 31.1 pg Normal 27.5-35.2 [facility] Comment on above: Performed By: #### P TT, PT #### [address] MCV (RBC) [Entitic vol] 93.0 fL Normal 83.5-101 [facility] Comment on above: Performed By: #### P TT, PT #### [address] Mean Corpuscular HGB Conc 33.5 g/dL Normal 32.5-35.6 [facility] Comment on above: Performed By: #### P TT, PT #### [address] Platelet mean volume (Bld) [Entitic vol] 7.7 fL Normal 6.6-10.1 [facility] Comment on above: Result Comment: PERF ORMED BY: [place] [address] PATHOLOGIST STATEMENT CLERK LUZ MARINA EMANUEL M.D. Performed By: #### P TT, PT #### [address] Platelets (Bld) [#/Vol] 243 10*3/uL Normal 150-450 [facility] Comment on above: Performed By: #### P TT, PT #### [address] RBC (Bld) [#/Vol] 2.75 10*6/uL Low 3.90-5.60 [facility] Comment on above: Performed By: #### P TT, PT #### [address] WBC (Bld) [#/Vol] 9.5 10*3/uL Normal 4.1-10.5 [facility] Comment on above: Performed By: #### P TT, PT #### [address] Basic Metabolic Panelon 02 Anion gap [Moles/Vol] 13.3 mmol/L Normal 6.0-15.0 [facility] Comment on above: Performed By: #### B MP #### [address] Calcium [Mass/Vol] 8.4 mg/dL Low 8.6-10.3 [facility] Comment on above: Performed By: #### B MP #### [address] Chloride [Moles/Vol] 104 mmol/L Normal 98-107 [facility] Comment on above: Performed By: #### B MP #### [address] CO2 [Moles/Vol] 28.3 mmol/L Normal 21.0-31.0 [facility] Comment on above: Performed By: #### B MP #### [address] Creatinine [Mass/Vol] 4.46 mg/dL High 0.70-1.30 [facility] Comment on above: Performed By: #### B MP #### [address] Creatinine Clr Calc Pharmacy 18.64 Normal [facility] Comment on above: Result Comment: PERF ORMED BY: [place] [address] PATHOLOGIST STATEMENT CLERK LUZ MARINA EMANUEL M.D. Performed By: #### B MP #### [address] GFR/1.73 sq M.predicted MDRD (S/P/Bld) [Vol rate/Area] 13.379 mL/min/{1.73_m2} Normal [facility] Comment on above: Performed By: #### B MP #### [address] Glucose [Mass/Vol] 89 mg/dL Normal 70-100 [facility] Comment on above: Result Comment: [place] Glucose Reference Range is dependent on time and content of last meal. Glucose of more than 200 mg/dL in a nonstressed, ambulatory subject supports the diagnosis of Diabetes Mellitus. ADA recommended reference range Performed By: #### B MP #### [address] Potassium [Moles/Vol] 4.6 mmol/L Normal 3.5-5.1 [facility] Comment on above: Performed By: #### B MP #### [address] Sodium [Moles/Vol] 141 mmol/L Normal 136-145 [facility] Comment on above: Performed By: #### B MP #### [address] Urea nitrogen [Mass/Vol] 47 mg/dL High 7-25 [facility] Comment on above: Performed By: #### B MP #### [address] Hemogram CBC Without Diffon 11-27-2023 Erythrocyte distribution width (RBC) [Ratio] 13.6 % Normal 12.0-14.8 [facility] Comment on above: Performed By: #### C BCNO #### [address] Hematocrit (Bld) [Volume fraction] 27.1 % Low 38.8-50.0 [facility] Comment on above: Performed By: #### C BCNO #### [address] Hemoglobin (Bld) [Mass/Vol] 9.2 g/dL Low 13.0-17.0 [facility] Comment on above: Performed By: #### C BCNO #### [address] MCH (RBC) [Entitic mass] 31.9 pg Normal 27.5-35.2 [facility] Comment on above: Performed By: #### C BCNO #### [address] MCV (RBC) [Entitic vol] 93.6 fL Normal 83.5-101 [facility] Comment on above: Performed By: #### C BCNO #### [address] Mean Corpuscular HGB Conc 34.0 g/dL Normal 32.5-35.6 [facility] Comment on above: Performed By: #### C BCNO #### [address] Platelet mean volume (Bld) [Entitic vol] 7.8 fL Normal 6.6-10.1 [facility] Comment on above: Result Comment: PERF ORMED BY: [place] [address] PATHOLOGIST STATEMENT CLERK LUZ MARINA EMANUEL M.D. Performed By: #### C BCNO #### [address] Platelets (Bld) [#/Vol] 264 10*3/uL Normal 150-450 [facility] Comment on above: Performed By: #### C BCNO #### [address] RBC (Bld) [#/Vol] 2.89 10*6/uL Low 3.90-5.60 [facility] Comment on above: Performed By: #### C BCNO #### [address] WBC (Bld) [#/Vol] 10.7 10*3/uL High 4.1-10.5 [facility] Comment on above: Performed By: #### C BCNO #### [address] Basic Metabolic Panelon 02-0 Anion gap [Moles/Vol] 13.1 mmol/L Normal 6.0-15.0 [facility] Comment on above: Performed By: #### B MP, CBC #### [address] Calcium [Mass/Vol] 8.5 mg/dL Low 8.6-10.3 [facility] Comment on above: Performed By: #### B MP, CBC #### [address] Chloride [Moles/Vol] 106 mmol/L Normal 98-107 [facility] Comment on above: Performed By: #### B MP, CBC #### [address] CO2 [Moles/Vol] 26.5 mmol/L Normal 21.0-31.0 [facility] Comment on above: Performed By: #### B MP, CBC #### [address] Creatinine [Mass/Vol] 4.59 mg/dL High 0.70-1.30 [facility] Comment on above: Performed By: #### B MP, CBC #### [address] Creatinine Clr Calc Pharmacy 18.11 Normal [facility] Comment on above: Result Comment: PERF ORMED BY: [place] [address] PATHOLOGIST STATEMENT CLERK LUZ MARINA EMANUEL M.D. Performed By: #### B MP, CBC #### [address] GFR/1.73 sq M.predicted MDRD (S/P/Bld) [Vol rate/Area] 12.925 mL/min/{1.73_m2} Normal [facility] Comment on above: Performed By: #### B MP, CBC #### [address] Glucose [Mass/Vol] 92 mg/dL Normal 70-100 [facility] Comment on above: Result Comment: [facility] Glucose Reference Range is dependent on time and content of last meal. Glucose of more than 200 mg/dL in a nonstressed, ambulatory subject supports the diagnosis of Diabetes Mellitus. ADA recommended reference range Performed By: #### B MP, CBC #### [address] Potassium [Moles/Vol] 4.6 mmol/L Normal 3.5-5.1 [facility] Comment on above: Performed By: #### B MP, CBC #### [address] Sodium [Moles/Vol] 141 mmol/L Normal 136-145 [facility] Comment on above: Performed By: #### B MP, CBC #### [address] Urea nitrogen [Mass/Vol] 48 mg/dL High 7-25 [facility] Comment on above: Performed By: #### B MP, CBC #### [address] Complete Blood Count Auto Di ffon 11-26-2023 Basophils (Bld) [#/Vol] 0.1 10*3/uL Normal 0.0-0.2 [facility] Comment on above: Result Comment: PERF ORMED BY: [place] [address] PATHOLOGIST STATEMENT CLERK LUZ MARINA EMANUEL M.D. Performed By: #### B MP, CBC #### [place] [address] [place] Basophils/100 WBC (Bld) 1.1 % Normal . [facility] Comment on above: Performed By: #### B MP, CBC #### [address] Eosinophils (Bld) [#/Vol] 0.1 10*3/uL Normal 0.0-0.45 [facility] Comment on above: Performed By: #### B MP, CBC #### [address] Eosinophils/100 WBC (Bld) 1.4 % Normal . [facility] Comment on above: Performed By: #### B MP, CBC #### [address] Erythrocyte distribution width (RBC) [Ratio] 13.5 % Normal 12.0-14.8 [facility] Comment on above: Performed By: #### B MP, CBC #### [address] Hematocrit (Bld) [Volume fraction] 28.7 % Low 38.8-50.0 [facility] Comment on above: Performed By: #### B MP, CBC #### [address] Hemoglobin (Bld) [Mass/Vol] 9.8 g/dL Low 13.0-17.0 [facility] Comment on above: Performed By: #### B MP, CBC #### [address] Lymphocytes (Bld) [#/Vol] 1.1 10*3/uL Normal 1.00-4.8 [facility] Comment on above: Performed By: #### B MP, CBC #### [address] Lymphocytes/100 WBC (Bld) 12.5 % Normal . [facility] Comment on above: Performed By: #### B MP, CBC #### [address] MCH (RBC) [Entitic mass] 31.8 pg Normal 27.5-35.2 [facility] Comment on above: Performed By: #### B MP, CBC #### [address] MCV (RBC) [Entitic vol] 93.2 fL Normal 83.5-101 [facility] Comment on above: Performed By: #### B MP, CBC #### [address] Mean Corpuscular HGB Conc 34.2 g/dL Normal 32.5-35.6 [facility] Comment on above: Performed By: #### B MP, CBC #### [address] Monocytes (Bld) [#/Vol] 0.6 10*3/uL Normal 0.0-0.8 [facility] Comment on above: Performed By: #### B MP, CBC #### [address] Monocytes/100 WBC (Bld) 7.3 % Normal . [facility] Comment on above: Performed By: #### B MP, CBC #### [address] Neutrophils (Bld) [#/Vol] 6.6 10*3/uL Normal 1.8-7.7 [facility] Comment on above: Performed By: #### B MP, CBC #### [address] Neutrophils/100 WBC (Bld) 77.7 % Normal . [facility] Comment on above: Performed By: #### B MP, CBC #### [address] NRBC% 0.0 /100{WBC} Normal 0-0.5 [facility] Comment on above: Performed By: #### B MP, CBC #### [address] Platelet mean volume (Bld) [Entitic vol] 7.8 fL Normal 6.6-10.1 [facility] Comment on above: Performed By: #### B MP, CBC #### [place] [address] [place] Platelets (Bld) [#/Vol] 281 10*3/uL Normal 150-450 [facility] Comment on above: Performed By: #### B MP, CBC #### [address] RBC (Bld) [#/Vol] 3.08 10*6/uL Low 3.90-5.60 [facility] Comment on above: Performed By: #### B MP, CBC #### [address] WBC (Bld) [#/Vol] 8.5 10*3/uL Normal 4.1-10.5 [facility] Comment on above: Performed By: #### B MP, CBC #### [address] Creatinine, Urine (Random)on 11-26-2023 Creatinine, Urine (Random) 58.0 mg/dL High 14.0-26.0 [facility] Comment on above: Result Comment: PERF ORMED BY: [place] [address] PATHOLOGIST STATEMENT CLERK LUZ MARINA EMANUEL M.D. Performed By: #### H EPACUTE #### [facility] , Ferritinon 11-26-2023 Ferritin [Mass/Vol] 251.2 ng/mL Normal 23.9-336.2 [facility] Comment on above: Performed By: #### H EPACUTE #### [facility] , Hepatic Panelon 11-26-2023 Albumin [Mass/Vol] 3.5 g/dL Normal 3.5-5.7 [facility] Comment on above: Performed By: #### H EPATIC #### [address] Albumin/Globulin [Mass ratio] 1.3 {ratio} Normal [facility] Comment on above: Performed By: #### H EPATIC #### [address] ALP [Catalytic activity/Vol] 53 U/L Normal 34-104 [facility] Comment on above: Result Comment: PERF ORMED BY: [place] [address] PATHOLOGIST STATEMENT CLERK LUZ MARINA EMANUEL M.D. Performed By: #### H EPATIC #### [address] ALT [Catalytic activity/Vol] 7 U/L Normal 7-52 [facility] Comment on above: Performed By: #### H EPATIC #### [address] AST [Catalytic activity/Vol] 12 U/L Low 13-39 [facility] Comment on above: Performed By: #### H EPATIC #### [address] Bilirubin [Mass/Vol] 0.4 mg/dL Normal 0.3-1.0 [facility] Comment on above: Performed By: #### H EPATIC #### [address] Bilirubin,Indirect 0.3 mg/dL Normal [facility] Comment on above: Performed By: #### H EPATIC #### [address] Bilirubin.indirect [Mass/Vol] 0.10 mg/dL Normal 0.03-0.18 [facility] Comment on above: Performed By: #### H EPATIC #### [address] Globulin (S) [Mass/Vol] 2.6 g/dL Normal [facility] Comment on above: Performed By: #### H EPATIC #### [address] Protein [Mass/Vol] 6.1 g/dL Low 6.4-8.9 [facility] Comment on above: Performed By: #### H EPATIC #### [address] Iron and TIBC Profileon 02-0 7-2023 % Iron Saturation 11.3 % Low 20-50 [facility] Comment on above: Performed By: #### H EPACUTE #### [facility] , Iron [Mass/Vol] 37 ug/dL Low 50-212 [facility] Comment on above: Performed By: #### H EPACUTE #### [facility] , Total Iron Binding Capacity 328 ug/dL Normal 255-450 [facility] Comment on above: Performed By: #### H EPACUTE #### [facility] , Transferrin [Mass/Vol] 234 mg/dL Normal 203-362 [facility] Comment on above: Performed By: #### H EPACUTE #### [facility] , Partial Thromboplastin Timeo n 11-26-2023 aPTT Coag (Bld) [Time] 37.1 s High 25.1-36.5 [facility] Comment on above: Result Comment: A he matocrit value greater than 55% may lead to inaccurate results in coagulation testing. Patients having hematocrit values >55% require a special collection tube for coagulation studies. Please contact the laboratory at [phone] for redraw instructions. PERFORMED BY: [place] [address] PATHOLOGIST STATEMENT CLERK LUZ MARINA EMANUEL M.D. Performed By: #### P TT, PT #### [place] [id number] [facility] Prothrombin Time INRon 11-26 INR Coag (PPP) [Relative time] 1.0 {INR} Normal [facility] Comment on above: Result Comment: INR Therapeutic Range A) Pre- and Peroperative OAT started two weeks before surgery. NOT HIP SURGERY: 1.5 - 2.5 HIP SURGERY: 2 - 3 B) Primary and secondary prevention of venous THROMBOSIS: 2 - 3 C) Active venous thrombosis, pulmonary embolism and prevention of recurrent venous thrombosis: 2 - 3 D) Prevention of arterial thromboembolism including patients with mechanical heart valves: 3 - 4.5 Performed By: #### P TT, PT #### [facility] [address] [place], [place] [id number] [facility] PT Coag (PPP) [Time] 11.9 s Normal 9.0-12.9 [facility] Comment on above: Result Comment: A he matocrit value greater than 55% may lead to inaccurate results in coagulation testing. Patients having hematocrit values >55% require a special collection tube for coagulation studies. Please contact the laboratory at [phone] for redraw instructions. Performed By: #### P TT, PT #### [address] Sodium, Urine (Random)on Sodium (U) [Moles/Vol] 75 mmol/L Normal [facility] Comment on above: Result Comment: No r eference range established PERFORMED BY: [place] [address] PATHOLOGIST STATEMENT CLERK LUZ MARINA EMANUEL M.D. Performed By: #### U NA #### [address] Stool Occult Blood (Guaiac)o n 11-26-2023 Stool Occult Blood (Guaiac) Occult Blood Negative for Occult Blood by Guaiac Methodology Reference range = Negative PERFORMED [place] [address] PATHOLOGIST STATEMENT CLERK LUZ MARINA EMANUEL M.D. Normal [facility] Comment on above: Performed By: #### P TT, PT #### [address] Vit. B12/Folate Profileon Cobalamin (Vitamin B12) [Mass/Vol] 549 pg/mL Normal 180-914 [facility] Comment on above: Performed By: #### H EPACUTE #### [facility] , Folate 16.7 ng/mL Normal >5.9 [facility] Comment on above: Result Comment: Tri te reference range: >5.9 ng/ml The WHO technical consultation on folate and vitamin b12 deficiencies has determined that folate concentrations less than 4 ng/ml are considered deficient. PERFORMED BY: [place] [address] PATHOLOGIST STATEMENT CLERK LUZ MARINA EMANUEL M.D. Performed By: #### H EPACUTE #### [facility] , Automated basophil %Ordered By: Edan Alonso on 11-25-2023 Basophils/100 WBC (Bld) 1.2 % Normal . [facility] Comment on above: Performed By: #### P TT, PT #### [address] Automated basophil countOrde red By: Edna Alonso on 11-25-2023 Basophils (Bld) [#/Vol] 0.1 10*3/uL Normal 0.0-0.2 [facility] Comment on above: Result Comment: PERF ORMED BY: [place] [address] PATHOLOGIST STATEMENT CLERK LUZ MARINA EMANUEL M.D. Performed By: #### P TT, PT #### [address] Automated blood monocyte cou ntOrdered By: Edna Alonso on 11-25-2023 Monocytes (Bld) [#/Vol] 0.8 10*3/uL Normal 0.0-0.8 [facility] Comment on above: Performed By: #### P TT, PT #### [address] Automated eosinophil %Ordere d By: Edna Alonso on 11-25-2023 Eosinophils/100 WBC (Bld) 3.1 % Normal . [facility] Comment on above: Performed By: #### P TT, PT #### [address] Automated eosinophil countOr dered By: Edna Alonso on 11-25-2023 Eosinophils (Bld) [#/Vol] 0.2 10*3/uL Normal 0.0-0.45 [facility] Comment on above: Performed By: #### P TT, PT #### [address] Automated epithelial cells c ount in urine sediment (number/area)Ordered By: Edna Crumpviral on 11-25-2023 Epithelial cells Auto (Urine sed) [#/Area] N/A [facility] Automated erythrocytes count in urine sediment (number/area)Ordered By: Edna Dacostae on 11-25-2023 RBC Auto (Urine sed) [#/Area] 0-1 [HPF] 0-4 [facility] Automated leukocytes count i n urine sediment (number/area)Ordered By: Edna Crumpjosee on 11-25-2023 WBC Auto (Urine sed) [#/Area] 1-2 [HPF] 0-4 [facility] Automated monocyte %Ordered By: Edna Crumpviral on 11-25-2023 Monocytes/100 WBC (Bld) 10.3 % Normal . [facility] Comment on above: Performed By: #### P TT, PT #### [address] Automated neutrophil %Ordere d By: Edna Alisiaviral on 11-25-2023 Neutrophils/100 WBC (Bld) 69.5 % Normal . [facility] Comment on above: Performed By: #### P TT, PT #### [address] Automated urine color determ inationOrdered By: Edna Alisiaviral on 11-25-2023 Color (U) Yellow Normal Yellow [facility] Comment on above: Order Comment: Name Collection Type:: Clean-Voided Midstream Performed By: #### P TT, PT #### [address] Basic Metabolic Panelon Creatinine Clr Calc Pharmacy 18.64 Normal [facility] Comment on above: Result Comment: PERF ORMED BY: [place] [address] PATHOLOGIST STATEMENT CLERK LUZ MARINA EMANUEL M.D. Performed By: #### P TT, PT #### [address] GFR/1.73 sq M.predicted MDRD (S/P/Bld) [Vol rate/Area] 13.027 mL/min/{1.73_m2} Normal [facility] Comment on above: Performed By: #### P TT, PT #### [address] Bilirubin Test strip Ql (U)O rdered By: Edna Alonso on 11-25-2023 Bilirubin Ql (U) Negative Negative [facility] CT abdomen pelvis wo conon 0 11-25-2023 CT abdomen pelvis wo con [facility] [address] [place] [address] [place] [address] CT Scan Report Signed Patient: Latisha Costa MR#: [id number] 1996 : 1950 Acct:[id number] Age/Sex: 73 / M ADM Date: 11/25/23 Loc: ER Room: Type: [facility] ER Attending Dr: Copies to: Edna Alonso APRN Ordering Provider: Edna Alonso APRN Date of Service: 11/25/23 CT/CT abdomen pelvis wo con: pain CT ABDOMEN AND PELVIS WITHOUT CONTRAST COMPARISON: 08/30/2015 and ultrasound 11/21/2023 CLINICAL DATA: Abdominal pain. Recent renal ultrasound showing bilateral hydronephrosis and marked bladder distention. Spiral images were obtained through the abdomen and pelvis without contrast. This CT exam was performed using one or more following dose reduction techniques: Automated exposure control, adjustment of the mA and/or kV according to patient size, or use of iterative reconstruction technique. Limited cuts through the lung bases show descending aortic aneurysmal dilatation of just under 5 cm. There is coronary artery disease. The heart is top normal in size. Atelectasis and/or scarring is noted on both sides. There is also minor gynecomastia. Assessment of the intra-abdominal organs is slightly limited by the absence of contrast. There is cholelithiasis. There is no pericholecystic inflammation. The liver, spleen, pancreas and adrenal glands show no acute findings. There is minor bilateral perinephric fibrofatty stranding. There are a couple small exophytic hypodensities at the right kidney that may be cysts. Cortical hypodensities are present on the left which are also probably cysts. Mild to moderate bilateral hydronephrosis is present. There is also mild ureteral dilatation however no stones. There is atherosclerotic plaque involving the aorta and iliac arteries. There are no enlarged lymph nodes or ascites. Small bowel loops are not significantly distended. There is air and stool along the colon. No appendiceal inflammation is seen. There is slight dextroscoliotic curvature and multilevel degenerative changes involving the spine with associated stenosis. Images through the pelvis show no small bowel distention. There is minimal distal colonic stool. No diverticular disease is noted. There is a Lee catheter within the urinary bladder. There is an suspected mild bladder wall thickening. The prostate contains calcification. No ascites is present. CT/CT abdomen pelvis wo con IMPRESSION: MILD BIBASILAR PARENCHYMAL CHANGE. ASCENDING AORTIC ANEURYSM. CHOLELITHIASIS. BILATERAL SUSPECTED RENAL CYSTS. MILD TO MODERATE BILATERAL HYDRONEPHROSIS, WITHOUT STONES. LEE CATHETER WITHIN THE BLADDER WHERE MILD WALL THICKENING IS SUSPECTED. Impression dictated by: Makayla Mehta M.D.11/25/2023 4:27 PM Dictation Location: [place] [address] Transcribed By: VALERIO 11/25/23 1627 Dictated By: Makayla Mehta MD 11/25/23 1616 Signed By: 11/25/23 1627 Normal [facility] Calcium [Mass/volume] in Ser um or PlasmaOrdered By: Edna Alonso on 11-25-2023 Calcium [Mass/Vol] 9.0 mg/dL Normal 8.6-10.3 [facility] Comment on above: Performed By: #### P TT, PT #### [facility] [address] Carbon dioxide, total [Moles /volume] in Serum or PlasmaOrdered By: Edna Alonso on 11-25-2023 CO2 [Moles/Vol] 25.5 mmol/L Normal 21.0-31.0 [facility] Comment on above: Performed By: #### P TT, PT #### [facility] [address] [place] [address] [place] Chloride [Moles/volume] in S mariya or PlasmaOrdered By: Edna Alonso on 11-25-2023 Chloride [Moles/Vol] 104 mmol/L Normal 98-107 [facility] Comment on above: Performed By: #### P TT, PT #### [address] Complete Blood Count Auto Di ffon 11-25-2023 Mean Corpuscular HGB Conc 33.6 g/dL Normal 32.5-35.6 [facility] Comment on above: Performed By: #### P TT, PT #### [address] Monocytes/100 WBC (Bld) 15.48 % Normal 0.00-20.00 [facility] Comment on above: Performed By: #### P TT, PT #### [address] NRBC% 0.1 /100{WBC} Normal 0-0.5 [facility] Comment on above: Performed By: #### P TT, PT #### [address] Creatinine [Mass/volume] in Serum or PlasmaOrdered By: Edna Alonso on 11-25-2023 Creatinine [Mass/Vol] 4.56 mg/dL High 0.70-1.30 [facility] Comment on above: Performed By: #### P TT, PT #### [address] Dipstick and Microscopicon 0 11-25-2023 Appearance (U) Clear Normal Clear [facility] Comment on above: Order Comment: Name Collection Type:: Clean-Voided Midstream Performed By: #### P TT, PT #### [address] Bacteria,Urine Rare High None Seen [facility] Comment on above: Order Comment: Name Collection Type:: Clean-Voided Midstream Result Comment: PERF ORMED BY: [place] [address] PATHOLOGIST STATEMENT CLERK LUZ MARINA EMANUEL M.D. Performed By: #### P TT, PT #### [place] [address] [place] Bilirubin,Urine Negative Normal Negative [facility] Comment on above: Order Comment: Name Collection Type:: Clean-Voided Midstream Performed By: #### P TT, PT #### [address] Glucose Ql (U) Normal Normal Normal [facility] Comment on above: Order Comment: Name Collection Type:: Clean-Voided Midstream Performed By: #### P TT, PT #### [place] [address] [place] Ketones Ql (U) Negative Normal Negative [facility] Comment on above: Order Comment: Name Collection Type:: Clean-Voided Midstream Performed By: #### P TT, PT #### [address] Leukocyte esterase Test strip Ql (U) Negative Normal Negative [facility] Comment on above: Order Comment: Name Collection Type:: Clean-Voided Midstream Performed By: #### P TT, PT #### [place] [address] [place] Nitrite,Urine Negative Normal Negative [facility] Comment on above: Order Comment: Name Collection Type:: Clean-Voided Midstream Performed By: #### P TT, PT #### [place] [address] [place] Occult Blood,Urine Negative Normal Negative [facility] Comment on above: Order Comment: Name Collection Type:: Clean-Voided Midstream Result Comment: PERF ORMED BY: [place] [address] PATHOLOGIST STATEMENT CLERK LUZ MARINA EMANUEL M.D. Performed By: #### P TT, PT #### [place] [address] [place] RBC LM.HPF (Urine sed) [#/Area] 0 /[HPF] Normal 0-4 [facility] Comment on above: Order Comment: Name Collection Type:: Clean-Voided Midstream Performed By: #### P TT, PT #### [facility] [address] Specificy [place],Urine 1.010 Normal 1.001-1.030 [facility] Comment on above: Order Comment: Name Collection Type:: Clean-Voided Midstream Performed By: #### P TT, PT #### [facility] [address] Urobilinogen,Urine Normal Normal Normal [facility] Comment on above: Order Comment: Name Collection Type:: Clean-Voided Midstream Performed By: #### P TT, PT #### [address] WBC,Urine 1-2 Normal 0-4 [facility] Comment on above: Order Comment: Name Collection Type:: Clean-Voided Midstream Performed By: #### P TT, PT #### [address] Erythrocyte distribution wid th [Ratio] by Automated countOrdered By: Edna Alonso on 11-25-2023 Erythrocyte distribution width (RBC) [Ratio] 13.4 % Normal 12.0-14.8 [facility] Comment on above: Performed By: #### P TT, PT #### [address] Erythrocytes [#/volume] in B lood by Automated countOrdered By: Edna Alonso on 11-25-2023 RBC (Bld) [#/Vol] 3.50 10*6/uL Low 3.90-5.60 [facility] Comment on above: Performed By: #### P TT, PT #### [address] Glucose [Mass/volume] in Ser um or PlasmaOrdered By: Edna Alonso on 11-25-2023 Glucose [Mass/Vol] 87 mg/dL Normal 70-100 [facility] Comment on above: ADA recommended refe rence rangeRandom Glucose Reference Range is dependent on time and content of last meal. Glucose of more than 200 mg/dL in a nonstressed, ambulatory subject supports the diagnosis of Diabetes Mellitus. Result Comment: [facility] Glucose Reference Range is dependent on time and content of last meal. Glucose of more than 200 mg/dL in a nonstressed, ambulatory subject supports the diagnosis of Diabetes Mellitus. ADA recommended reference range Performed By: #### P TT, PT #### [facility] [address] [place] [address] Hematocrit [Volume Fraction] of Blood by Automated countOrdered By: Edna Alonso on 11-25-2023 Hematocrit (Bld) [Volume fraction] 32.5 % Low 38.8-50.0 [facility] Comment on above: Performed By: #### P TT, PT #### [facility] [address] [place] [address] Hemoglobin [Mass/volume] in BloodOrdered By: Edna Alonso on 11-25-2023 Hemoglobin (Bld) [Mass/Vol] 10.9 g/dL Low 13.0-17.0 [facility] Comment on above: Performed By: #### P TT, PT #### [facility] [address] [place] [address] Hepatitis Acute Panelon HBsAg Screen Negative Normal Negative [facility] Comment on above: Performed By: #### H EPACUTE #### [facility] , Hepatitis A Antibody IgM Negative Normal Negative [facility] Comment on above: Performed By: #### H EPACUTE #### [facility] , Hepatitis B Core Antibody IgM Negative Normal Negative [facility] Comment on above: Performed By: #### H EPACUTE #### [facility] , Hepatitis C Virus Antibody Non-Reactive Normal Non Reactive [facility] Comment on above: Performed By: #### H EPACUTE #### [facility] , Interpretation Hepatitis C Normal . [facility] Comment on above: Result Comment: Not infected with HCV unless early or acute infection is suspected (which may be delayed in an immunocompromised individual), or other evidence exists to indicate HCV infection. Performed at: [address] [place], [place] [id number] It Security Analyst: Skyler Villagran PhD, Phone: [phone] PERFORMED BY: [place] [address] PATHOLOGIST STATEMENT CLERK LUZ MARINA EMANUEL M.D. Performed By: #### H EPACUTE #### [facility] , Ketones Auto test strip (U) [Mass/Vol]Ordered By: Edna Alonso on 11-25-2023 Ketones (U) [Mass/Vol] Negative Negative [facility] Leukocytes [#/volume] correc jones for nucleated erythrocytes in Blood by Automated counOrdered By: Edna Alonso on 11-25-2023 WBC corrected for nucl RBC Auto (Bld) [#/Vol] 7.6 10*3/uL 4.1-10.5 [facility] Leukocytes [#/volume] in Blo od by Automated countOrdered By: Edna Alonso on 11-25-2023 WBC (Bld) [#/Vol] 7.6 10*3/uL Normal 4.1-10.5 [facility] Comment on above: Performed By: #### P TT, PT #### [facility] [address] [place] [address] [place] Lymphocytes [#/volume] in Bl ood by Automated countOrdered By: Edna Alonso on 11-25-2023 Lymphocytes (Bld) [#/Vol] 1.2 10*3/uL Normal 1.00-4.8 [facility] Comment on above: Performed By: #### P TT, PT #### [facility] [address] [place] [address] [place] Lymphocytes/100 leukocytes i n Blood by Automated countOrdered By: Edna Alonso on 11-25-2023 Lymphocytes/100 WBC (Bld) 15.9 % Normal . [facility] Comment on above: Performed By: #### P TT, PT #### [facility] [address] [place] [address] [place] MCH [Entitic mass] by Automa jones countOrdered By: Edna Alonso on 11-25-2023 MCH (RBC) [Entitic mass] 31.2 pg Normal 27.5-35.2 [facility] Comment on above: Performed By: #### P TT, PT #### [facility] [address] [place] [address] MCHC Auto (RBC) [Mass/Vol]Or dered By: Edna Alonso on 11-25-2023 MCHC (RBC) [Mass/Vol] 33.6 g/dL 32.5-35.6 [facility] MCV [Entitic volume] by Auto mated countOrdered By: Edna Alonso on 11-25-2023 MCV (RBC) [Entitic vol] 92.9 fL Normal 83.5-101 [facility] Comment on above: Performed By: #### P TT, PT #### [facility] [address] [place] [address] Monocyte distribution width [Entitic volume] in Blood by AutomatedOrdered By: Edna Alonso on 11-25-2023 Monocyte distribution width Auto (Bld) [Entitic vol] 15.48 % 0.00-20.00 [facility] Neutrophils [#/volume] in Bl ood by Automated countOrdered By: Edna Alonso on 11-25-2023 Neutrophils (Bld) [#/Vol] 5.3 10*3/uL Normal 1.8-7.7 [facility] Comment on above: Performed By: #### P TT, PT #### [facility] [address] [place] [address] Nitrite Test strip Ql (U)Ord ered By: Edna Alonso on 11-25-2023 Nitrite Ql (U) Negative Negative [facility] No Panel InformationOrdered By: Edna Alonso on 11-25-2023 Estimated GFR (CKD-EPI) 13.027 mL/Min [facility] Creatinine Clearance (Chem 18.64 [facility] Nucleated erythrocytes [Pres ence] in Blood by Automated countOrdered By: Edna Alonso on 11-25-2023 Nucleated RBC Auto Ql (Bld) 0.1 /100{WBC} 0-0.5 [facility] Platelet mean volume [Entiti c volume] in Blood by Automated countOrdered By: Edna Alonso on 11-25-2023 Platelet mean volume (Bld) [Entitic vol] 7.9 fL Normal 6.6-10.1 [facility] Comment on above: Performed By: #### P TT, PT #### [facility] [address] [place] [address] Platelets [#/volume] in Bloo d by Automated countOrdered By: Edna Alonso on 11-25-2023 Platelets (Bld) [#/Vol] 318 10*3/uL Normal 150-450 [facility] Comment on above: Performed By: #### P TT, PT #### [address] Potassium [Moles/volume] in Serum or PlasmaOrdered By: Edna Alonso on 11-25-2023 Potassium [Moles/Vol] 4.0 mmol/L Normal 3.5-5.1 [facility] Comment on above: Performed By: #### P TT, PT #### [address] Serum or plasma anion gap de terminationOrdered By: Edna Alonso on 11-25-2023 Anion gap [Moles/Vol] 14.5 mmol/L Normal 6.0-15.0 [facility] Comment on above: Performed By: #### P TT, PT #### [place] [address] [place] Sodium [Moles/volume] in Ser um or PlasmaOrdered By: Edna Alonso on 11-25-2023 Sodium [Moles/Vol] 140 mmol/L Normal 136-145 [facility] Comment on above: Performed By: #### P TT, PT #### [address] Specific gravity Auto test s trip (U) [Rel density]Ordered By: Edna Alonso on 11-25-2023 Specific gravity (U) [Rel density] 1.010 1.001-1.030 [facility] Urea nitrogen [Mass/volume] in Serum or PlasmaOrdered By: Edna Alonso on 11-25-2023 Urea nitrogen [Mass/Vol] 48 mg/dL High 7-25 [facility] Comment on above: Performed By: #### P TT, PT #### [facility] [address] [place] [address] Urine Cultureon 11-25-2023 Bacteria identified Cx Nom (U) No Growth 2 Days PERFORMED BY: [place] [address] PATHOLOGIST STATEMENT CLERK LUZ MARINA EMANUEL M.D. Normal [facility] Comment on above: Performed By: #### P TT, PT #### [facility] [address] [place] [address] Urine bacteria detection by automated methodOrdered By: Edna Alonso on 11-25-2023 Bacteria Auto Ql (U) Rare None Seen [facility] Urine clarity by refractomet ry automatedOrdered By: Edna Alonso on 11-25-2023 Clarity Refractometry automated (U) Clear Clear [facility] Urine glucose measurement by automated test strip (mass/volume)Ordered By: Edna Alonso on 11-25-2023 Glucose Auto test strip (U) [Mass/Vol] Normal mg/dL Normal [facility] Urine hemoglobin detection b y automated test stripOrdered By: Edna Alonso on 11-25-2023 Hemoglobin Auto test strip Ql (U) Negative Negative [facility] Urine leukocyte esterase det ection by automated test stripOrdered By: Edna Alonso on 11-25-2023 Leukocyte esterase Auto test strip Ql (U) Negative Negative [facility] Urine pH measurement by auto mated test stripOrdered By: Edna Alonso on 11-25-2023 pH (U) 6.0 [pH] Normal 5.0-9.0 [facility] Comment on above: Order Comment: Name Collection Type:: Clean-Voided Midstream Performed By: #### P TT, PT #### [facility] [address] [place] [address] Urine protein measurement by automated test strip (mass/volume)Ordered By: Edna Alonso on 11-25-2023 Protein (U) [Mass/Vol] 30 mg/dL High Negative [facility] Comment on above: Order Comment: Name Collection Type:: Clean-Voided Midstream Performed By: #### P TT, PT #### [address] Urobilinogen Auto test strip (U) [Mass/Vol]Ordered By: Edna Alonso on 11-25-2023 Urobilinogen (U) [Mass/Vol] Normal mg/dL Normal [facility] US renal BIon 11-21-2023 US renal BI [facility] [place] [address] [place] [address] Ultrasound Report Signed Patient: Latisha Costa MR#: [id number] [birth year] Acct:[id number] Age/Sex: 73 / M ADM Date: 11/21/23 Loc: Room: Type: [facility] Attending Dr: Dangelo Schuler DO Ordering Provider: Dangelo Schuler DO Date of Service: 11/21/23 US/US renal BI: CKD Copies to: Dangelo Schuler DO BILATERAL RENAL AND BLADDER ULTRASOUND CLINICAL HISTORY: Chronic kidney disease. COMPARISON: None Estimation of renal size is approximately 11.3 cm on the right and 11.18 cm on the left. No contour deforming mass or shadowing stone. Severe bilateral hydronephrosis is seen. Cystic changes right kidney. The urinary bladder is partially distended with a volume of 1195.04 ml. No shadowing stone or focal lesion. Significant post void residual 1081 mL. US/US renal BI IMPRESSION: DISTENDED URINARY BLADDER WITH BILATERAL HYDRONEPHROSIS. BLADDER OBSTRUCTION IS SUSPECTED. LEE CATHETER DECOMPRESSION SHOULD BE CONTEMPLATED. Impression dictated by: Donny Angel Jr., D.O.11/21/2023 4:17 PM Dictation Location: [place] [address] Tech: Toya Linda Transcribed By: VALERIO 11/21/23 1617 Dictated By: Donny Angel Jr, DO 11/21/23 1616 Signed By: 11/21/23 1617 [facility] [place] 07-23-2023 L Specimen: [id number] Received: 07/23/23 Status: DARRON Baltazar Num: [id number] Spec Type: Surgical Subm Dr: Adal Green MD Tissues: A Colon Biopsy (DESCENDING POLYP) Procedures: HE/Baldomero Rahman/Talya L4 Age/ Patient Sex Location Account Attending Physician Latisha Costa/M [id number] Adal Green MD SPEC NUM: [id number] RECD: 07/23/23 STATUS: DARRON BALTAZAR NUM: [id number] PEDRO: 07/23/23 DR: Adal Green MD ENTERED: 07/23/[address] [facility] [address]: SPEC TYPE: Surgical DEPT: S ORDERED: HE/, Gross/Micro L4 ORDERED: , Gross/Micro L4 Pathological Diagnosis Descending colon polyp biopsy: - Entirely degenerated mucus debris and vegetable bodies without any viable colonic mucosa for assessment Clinical Information History colon polyps Gross Description Received in formalin labeled with the patient's name, date of and descending polyp are multiple salazar tissues and fecal material measuring 1.5 x 0.7 x 0.2 cm in aggregate. Entirely submitted in one cassette labeled A1. Microscopic Description Five H E slides reviewed. The microscopic examination confirms the diagnosis. CPT Codes 40365 Specimen: [id number] Received: 07/23/23 Status: DARRON Baltazar Num: [id number] Spec Type: Surgical Subm Dr: Adal Green MD Tissues: A Colon Biopsy (DESCENDING POLYP) Procedures: , Gross/Micro L4 Patient: Latisha Costa [id number] (Continued) Signed (signature on file) Julio C Larios MD 07/24/23 1423 Normal [facility] Vital Signs Date Time Vital Sign Value Performing Clinician Facility 04-04-2024 10:15-0400 Diastolic blood pressure 81 mm[Hg] DO [facility] Work Phone: [facility] 04-04-2024 10:15-0400 Heart rate 58 /min DO [place] [facility] Work Phone: [facility] 04-04-2024 10:15-0400 Respiratory rate 18 /min DO [facility] Work Phone: [facility] 04-04-2024 10:15-0400 SaO2% (BldA) [Mass fraction] 97 % DO [facility] Work Phone: [facility] 04-04-2024 10:15-0400 Systolic blood pressure 132 mm[Hg] [facility] 04-04-2024 07:51-0400 Body height 182.88 cm [facility] Work [facility] 04-04-2024 07:51-0400 Body temperature 98 [degF] [facility] 04-04-2024 07:51-0400 Body weight 108 kg [facility] 02-27-2024 14:28-0400 Blood Pressure Location Rajat AVILA [facility] 02-27-2024 14:28-0400 Diastolic blood pressure 112 mm[Hg] Rajat AVIL[facility] 02-27-2024 14:28-0400 Heart rate 61 /min Rajathellen AVILA [facility] 02-27-2024 14:28-0400 Systolic blood pressure 142 mm[Hg] Rajat AVILA [facility] 01-20-2024 13:11-0400 Body height 182.88 cm DO Dangelo [facility] Work Phone: [facility] 01-20-2024 13:11-0400 Body mass index (BMI) [Ratio] 30.8 kg/m2 DO [facility] Work Phone: [facility] 01-20-2024 13:11-0400 Body temperature 97.2 [degF] DO Dangelo Jenkinsroallan Work Phone: [facility] 01-20-2024 13:11-0400 Body weight 103.02 kg DO Dangelo Jenkinsroallan Work Phone: [facility] 01-20-2024 13:11-0400 Diastolic blood pressure 67 mm[Hg] DO Dangelo Jenkinsroh Work Phone: [facility] 01-20-2024 13:11-0400 Heart rate 65 /min DO Dangelo Gregoryroh Work Phone: [facility] 01-20-2024 13:11-0400 Respiratory rate 16 /min DO Dangelo Gregoryroh Work Phone: [facility] 01-20-2024 13:11-0400 SaO2% (BldA) [Mass fraction] 97 % DO Dangelo Degroh Work Phone: [facility] 01-20-2024 13:11-0400 Systolic blood pressure 98 mm[Hg] DO Dangelo Degroh Work Phone: [facility] 01-05-2024 13:30-0400 Blood Pressure Location Bess Orzech [facility] 01-05-2024 13:30-0400 Body temperature 97.16 [degF] Bess Orzech [facility] 01-05-2024 13:30-0400 Diastolic blood pressure 82 mm[Hg] Bess Orzech [facility] 01-05-2024 13:30-0400 Heart rate 84 /min Bess Orzech [facility] 01-05-2024 13:30-0400 Systolic blood pressure 124 mm[Hg] Bess Orzech [facility] 12-04-2023 13:13-0500 Body height 182.88 cm DO Dangelo Jenkinsroallan Work Phone: [facility] 12-04-2023 13:13-0500 Body temperature 98.3 [degF] DO Dangelo Jenkinsroallan Work Phone: [facility] 12-04-2023 13:13-0500 Body weight 104.32 kg DO Dangelo Jenkinsroh Work Phone: [facility] 12-04-2023 13:13-0500 Diastolic blood pressure 57 mm[Hg] DO Dangelo Gregoryroh Work Phone: [facility] 12-04-2023 13:13-0500 Heart rate 87 /min DO Dangelo Jenkinsroh Work Phone: [facility] 12-04-2023 13:13-0500 Respiratory rate 18 /min DO Dangelo Schuler Work Phone: [facility] 12-04-2023 13:13-0500 SaO2% (BldA) [Mass fraction] 99 % DO Dangelo Schuler Work Phone: [facility] 12-04-2023 13:13-0500 Systolic blood pressure 98 mm[Hg] DO Dangelo Schuler Work Phone: [facility] 12-02-2023 10:02-0500 Body mass index (BMI) [Ratio] 34.04 kg/m2 Kun Nolasco DO Work Phone: [facility] 12-02-2023 10:02-0500 Body temperature 97.7 [degF] Kun Nolasco DO Work Phone: [facility] 12-02-2023 10:02-0500 Body weight 113.85 kg Kun Nolasco DO Work Phone: [facility] 12-02-2023 10:02-0500 Diastolic blood pressure 70 mm[Hg] Kun Nolasco DO Work Phone: [facility] 12-02-2023 10:02-0500 Heart rate 73 /min Kun Nolasco DO Work Phone: [facility] 12-02-2023 10:02-0500 SaO2% (BldA) [Mass fraction] 99 % Kun Nolasco DO Work Phone: [facility] 12-02-2023 10:02-0500 Systolic blood pressure 112 mm[Hg] Kun Nolasco DO Work Phone: [facility] 12-01-2023 11:11-0500 Body temperature 98.1 [degF] DO Dangelo Schuler Work Phone: [facility] 12-01-2023 11:11-0500 Diastolic blood pressure 67 mm[Hg] DO Dangelo Schuler Work Phone: [facility] 12-01-2023 11:11-0500 Heart rate 68 /min DO Dangelo Degroh Work Phone: [facility] 12-01-2023 11:11-0500 Respiratory rate 17 /min DO Dangelo Degroh Work Phone: [facility] 12-01-2023 11:11-0500 SaO2% (BldA) [Mass fraction] 94 % DO Dangelo Degroh Work Phone: [facility] 12-01-2023 11:11-0500 Systolic blood pressure 107 mm[Hg] DO Dangelo Degroh Work Phone: [facility] 12-01-2023 06:00-0500 Body weight 107.2 kg DO Dangelo Degroh Work Phone: [facility] 11-28-2023 12:32-0500 Body height 182.88 cm DO Dangelo Gregoryroh Work Phone: [facility] 11-25-2023 19:27-0500 Diastolic blood pressure 102 mm[Hg] DO Dangelo Gregoryroh Work Phone: [facility] 11-25-2023 19:27-0500 Heart rate 75 /min DO Dangelo Gregoryroh Work Phone: [facility] 11-25-2023 19:27-0500 Respiratory rate 18 /min DO Dangelo Gregoryroallan Work Phone: [facility] 11-25-2023 19:27-0500 SaO2% (BldA) [Mass fraction] 97 % DO Dangelo Gregoryroallan Work Phone: [facility] 11-25-2023 19:27-0500 Systolic blood pressure 173 mm[Hg] DO Dangelo Degroh Work Phone: [facility] 11-25-2023 14:57-0500 Body height 182.88 cm DO Dangelo Degroh Work Phone: [facility] 11-25-2023 14:57-0500 Body temperature 97.8 [degF] DO Dangelo Schuler Work Phone: [facility] 11-25-2023 14:57-0500 Body weight 105.35 kg DO Dangelo Schuler Work Phone: [facility] 07-23-2023 12:45-0400 Diastolic blood pressure 81 mm[Hg] DO Dangelo Schuler Work Phone: [facility] 07-23-2023 12:45-0400 Heart rate 62 /min DO Dangelo Schuler Work Phone: [facility] 07-23-2023 12:45-0400 Respiratory rate 14 /min DO Dangelo Schuler Work Phone: [facility] 07-23-2023 12:45-0400 SaO2% (BldA) [Mass fraction] 98 % DO Dangelo Schuler Work Phone: [facility] 07-23-2023 12:45-0400 Systolic blood pressure 137 mm[Hg] DO Dangelo Schuler Work Phone: [facility] 07-23-2023 10:18-0400 Body height 182.88 cm DO Dangelo Schuler Work Phone: [facility] 07-23-2023 10:18-0400 Body temperature 97.7 [degF] DO Dangelo Schuler Work Phone: [facility] 07-23-2023 10:18-0400 Body weight 113.39 kg DO Dangelo Schuler Work Phone: [facility] Encounters Encounter Date Encounter Type Care Provider Facility Start: 06-23-2024 ambulatory Rajat Benton ty:[facility] Start: 05-31-2024 ambulatory Rajat Velazquezi ty:[facility] Start: 05-27-2024 ambulatory Rajat Velazquezi ty:[id number] Start: 04-19-2024 End: 04-19-2024 ambulatory Bess X Orzech Facility:[facility] Start: 04-19-2024 End: 04-19-2024 Patient encounter procedure Bess X Orzech [facility] Start: 04-04-2024 End: 04-04-2024 Emergency department patient visit DO Dangelo Schuler Work Phone: [facility] Work Phone: Start: 03-23-2024 End: 03-23-2024 ambulatory Rajat Kurt AVILA Facility:[facility] Start: 03-23-2024 End: 03-23-2024 Patient encounter procedure Rajat Kurt DANO [facility] Start: 02-27-2024 End: 02-27-2024 ambulatory Rajat Kurt AVILA Facility: [facility] Start: 02-27-2024 End: 02-27-2024 Patient encounter procedure Rajathellen AVILA [facility] Start: 02-04-2024 End: 02-04-2024 ambulatory Rajathellen AVILA Facility:[facility] Start: 02-04-2024 End: 02-04-2024 Patient encounter procedure Rajathellen AVILA [facility] Start: 01-20-2024 End: 01-20-2024 ambulatory DO Dangelo Schuler Work Phone: [facility] Work Phone: Start: 01-20-2024 End: 01-20-2024 Patient encounter procedure DO Dangelo Schuler Work Phone: [facility] Work Phone: Start: 01-05-2024 End: 01-05-2024 ambulatory Bess X Orzech Facility:[facility] Start: 01-05-2024 End: 01-05-2024 Patient encounter procedure Bess Duarte [facility] Start: 12-18-2023 End: 12-18-2023 Patient encounter procedure DO Dangelo Schuler Work Phone: [facility] [place] Work Phone: Start: 12-18-2023 End: 12-18-2023 ambulatory Dangelo Alvarezallan Facility:[facility] Start: 12-04-2023 End: 12-04-2023 Emergency department patient visit DO Dangelo Schuler Work Phone: [facility] Work Phone: Start: 12-02-2023 End: 12-03-2023 ambulatory KUN NOLASCO Not Available Start: 12-02-2023 End: 12-02-2023 Office outpatient new 45 minutes Kun Nolasco DO Work Phone: [facility] Comment on above: Cellulitis of right middle finger (Primary Dx); Pain of right middle finger; Osteoarthritis of right hand, unspecified osteoarthritis type Start: 12-01-2023 ambulatory Latisha Suazo Facility:[facility] Start: 12-01-2023 Non-patient / Non-visit DO Elliott id Degroh Work Phone: [facility] Work Phone: Start: 11-29-2023 End: 11-29-2023 ambulatory Latisha Suazo Facility:[id number] Start: 11-25-2023 Non-patient / Non-visit DO Elliott id Degroh Work Phone: [facility] Work Phone: Start: 11-25-2023 End: 12-01-2023 Evaluation and management of inpatient DO Dangelo Schuler Work Phone: [facility] Work Phone: Start: 11-21-2023 End: 11-21-2023 ambulatory DO Dangelo Schuler Work Phone: [facility] Work Phone: Start: 11-21-2023 End: 11-21-2023 Patient encounter procedure DO Dangelo Schuler Work Phone: [facility]Ultrasound [facility] [place] Work Phone: Start: 07-23-2023 End: 07-23-2023 Admission to same day surgery center DO Dangelo Schuler Work Phone: [facility] Work Phone: Start: 07-23-2023 End: 07-23-2023 ambulatory DO Dangelo Schuler Work Phone: [facility] Work Phone: Procedures Date Procedure Procedure Detail Performing Clinician Start: 02-27-2024 Flexible cystoscope (physical object) Rajat AVILA Start: 12-18-2023 CT of chest without contrast DO Dangelo Schuler Work Phone: Start: 12-04-2023 Duplex scan veins of upper limb DO Dangelo Schuler Work Phone: Start: 12-02-2023 Radex fingr minimum 2 views Kun Nolasco DO Work Phone: Start: 11-25-2023 CT of abdomen and pe lvis without contrast DO Dangelo Schuler Work Phone: Start: 11-21-2023 Ultrasonography of b ilateral kidneys DO Dangelo Schuler Work Phone: Start: 07-23-2023 Colonoscopy DO Dangelo gonzalez Work Phone: Extended radical nec k dissection of cervical lymph nodes Bess Duarte Tonsillectomy Bess Duarte Vascular surgery (qu phuongfimonie value) Bess Duarte Plan of Treatment Date Care Activity Detail Author Start: 04-04-2024 Bacteria identified in Urine by Culture [facility] Start: 12-04-2023 Duplex scan veins of upper limb US venous duplex UE RT [facility] Start: 12-04-2023 US Upper extremity v ein - right [facility] Start: 12-01-2023 [facility] Start: 11-28-2023 [facility] Start: 11-27-2023 [facility] Start: 11-26-2023 Referral to urologist [facility] Start: 11-26-2023 Referral to superintendent operating [facility] Start: 11-26-2023 [facility] Start: 11-25-2023 Hospital admission [facility] Start: 11-25-2023 [facility] Start: 11-25-2023 [facility] Start: 07-23-2023 [facility] Start: 1950 Screening for malign ant neoplasm of colon [facility] Bacteria identified in Urine by Culture [facility] Hepatitis A virus antibody, IgM type [facility] Hepatitis B core ant ibody measurement, IgM type [facility] Hepatitis B virus navarro rface Ag [Presence] in Serum or Plasma by Immunoassay [facility] Hepatitis C virus Ig G Ab [Presence] in Serum or Plasma by Immunoassay [facility] Hepatitis C virus RN A [log units/volume] (viral load) in Serum or Plasma by WOODY with probe detection [facility] Hepatitis C virus RN A [Units/volume] (viral load) in Serum or Plasma by WOODY with probe detection [facility] Patient Education [facility] Work Phone: Patient referral [facility] Work Phone: Renal function 1999 panel - Serum or Plasma [facility] Renal function 1999 panel - Serum or Plasma [facility] Immunizations Immunization Date Immunization Notes Care Provider Fa cility 11-17-2023 tetanus toxoid, redu robert diphtheria toxoid, and acellular pertussis vaccine, adsorbed Bess OrSocialBuy [facility] 10-21-2023 influenza virus vaccine, unspecified formulation Bess Orze [facility] 10-10-2021 SARS-CoV-2 (COVID-19 ) mRNA-1273 vaccine Bess Orze [facility] 03-02-2021 SARS-CoV-2 (COVID-19 ) mRNA-1273 vaccine Dorothy Orze [facility] 02-02-2021 COVID-19 mRNA-1273 (Moderna) DO Dangelo Schuler Work Phone: [facility] Payers Date Payer Category Payer Self-pay [id number] 2023 Unknown [id number] 2022 Medicare HU[employer]NA MEDICARE ADVANTAGE HU[employer]NA MEDICARE [id number] 2022-Present [address] [address] [place] [address] [id number] 2022 Private Health Insurance [id number] 1950 Unknown [id number] [id number] .2.1259 1950 Unknown [id number] 2.16.840.1.206087.3.579 .2.1259 1950 Unknown [id number] 2.16.840.1.715786.3.579 .2.727 1950 Unknown [id number] 2.16.840.1.691785.3.579 .2.727 1950 Unknown [id number] 2.16.840.1.649953.3.579 .2.727 1950 Unknown [id number] 2.16.840.1.667647.3.579 .2.727 1950 Unknown [id number] 2.16.840.1.357403.3.579 .2.727 1950 Unknown [id number] 2.16.840.1.945191.3.579 .2.727 1950 Unknown [id number] 2.16.840.1.368120.3.579 .2.727 1950 Unknown [id number] 2.16.840.1.709294.3.579 .2.727 Unknown [facility] [id number] Unknown [id number] 2.16.840.1.297108.3.579 .2.531 Unknown [id number] 2.16.840.1.005039.3.579 .2.531 Unknown [id number] 2.16.840.1.407291.3.579 .2.531 Unknown [id number] 2.16.840.1.330596.3.579 .2.531 Unknown [id number] 2.16.840.1.112342.3.579 .2.531 Unknown [id number] 2.16.840.1.001906.3.579 .2.531 Social History Date Type Detail Facility Start: 07-23-2023 End: 04-04-2024 Tobacco smoking status RIIS Ex-smoker (finding) [facility] Start: 1950 Sex Assigned At Male [facility] Start: 11-25-2023 End: 02-27-2024 Tobacco smoking status NHIS Never smoked tobacco (finding) [facility] Start: 12-02-2023 Tobacco smoking status NHIS Tobacco smoking consumption unknown [facility] Start: 1950 Sex Assigned At Not on file [facility] Gender identity Not on file [facility] Tobacco smoking status Never [facility] Goals Date Patient Goal Desired Activity /State Functional Status Date Assessment Result Facility 02-27-2024 Functional Status N/A [facility] 01-05-2024 Functional Status N/A [facility] Clinical Notes 07-23-2023 to 03-23-2024 Bernie Valdez MA - 12/02/2023 9:50 AM ESTPatient Instructions Note Date & Type Note Facility 03-23-2024 Note [id number] [facility] 02-27-2024 Hospital Discharge instructions Patient Education 02/27/2024 15:10:43 Transurethral Resection of the Prostate Transurethral Resection of the Prostate Transurethral resection of the prostate (TURP) is the removal, or resection, of part of the prostate tissue. This procedure is done to treat an enlarged prostate gland (benign prostatic hyperplasia). The goal of TURP is to remove enough prostate tissue to allow for a normal flow of urine. The procedure will allow you to empty your bladder more completely when you urinate so that you can urinate less often. In a transurethral resection, a thin telescope with a light, a camera, and an electric cutting edge (resectoscope) is passed through the urethra and into the prostate. The opening of the urethra is at the end of the penis. Tell a health care provider about: Any allergies you have. All medicines you are taking, including vitamins, herbs, eye drops, creams, and ahdq-ymw-spasfsw medicines. Any problems you or family members have had with anesthetic medicines. Any bleeding problems you have. Any surgeries you have had. Any medical conditions you have. Any prostate infections you have had. What are the risks? Generally, this is a safe procedure. However, problems may occur, including: Infection. Bleeding. Allergic reactions to medicines. Blood in the urine (hematuria). Damage to nearby structures or organs. Other problems may occur, but they are rare. They include: Dry ejaculation, or having no semen come out during orgasm. Erectile dysfunction, or being unable to have or keep an erection. Scarring that leads to narrowing of the urethra. This narrowing may block the flow of urine. Inability to control when you urinate (incontinence). Deep vein thrombosis. This is a blood clot that can develop in your leg. TURP syndrome. This can happen when you lose too much sodium during or after the procedure. Some signs and symptoms of this condition include: ?Weakness. ?Headaches. ?Nausea or vomiting. ?Muscle cramping. What happens before the procedure? When to stop eating and drinking Follow instructions from your health care provider about what you may eat and drink before your procedure. These may include: 8 hours before your procedure ?Stop eating most foods. Do not eat meat, fried foods, or fatty foods. ?Eat only light foods, such as toast or crackers. ?All liquids are okay except energy drinks and alcohol. 6 hours before your procedure ?Stop eating. ?Drink only clear liquids, such as water, clear fruit juice, black coffee, plain tea, and sports drinks. ?Do not drink energy drinks or alcohol. 2 hours before your procedure ?Stop drinking all liquids. ?You may be allowed to take medicines with small sips of water. If you do not follow your health care provider's instructions, your procedure may be delayed or canceled. Medicines Ask your health care provider about: Changing or stopping your regular medicines. This is especially important if you are taking diabetes medicines or blood thinners. Taking medicines such as aspirin and ibuprofen. These medicines can thin your blood. Do not take these medicines unless your health care provider tells you to take them. Taking ksne-ipl-wgtfbmd medicines, vitamins, herbs, and supplements. Surgery safety Ask your health care provider what steps will be taken to help prevent infection. These steps may include: Removing hair at the surgery site. Washing skin with a germ-killing soap. Taking antibiotic medicine. General instructions Do not use any products that contain nicotine or tobacco for at least 4 weeks before the procedure. These products include cigarettes, chewing tobacco, and vaping devices, such as e-cigarettes. If you need help quitting, ask your health care provider. If you will be going home right after the procedure, plan to have a responsible adult: ?Take you home from the hospital or clinic. You will not be allowed to drive. ?Care for you for the time you are told. What happens during the procedure? An IV will be inserted into one of your veins. You will be given one or more of the following: ?A medicine to help you relax (sedative). ?A medicine to make you fall asleep (general anesthetic). ?A medicine that is injected into your spine to numb the area below and slightly above the injection site (spinal anesthetic). Your legs will be placed in foot rests (stirrups) so that your legs are apart and your knees are bent. The resectoscope will be passed through your urethra to your prostate. Parts of your prostate will be resected using the cutting edge of the resectoscope. Fluid will be passed to rinse out the cut tissues (irrigation). The resectoscope will be removed. A small, thin tube (catheter) will be passed through your urethra and into your bladder. The catheter will drain urine into a bag outside of your body. The procedure may vary among health care providers and hospitals. What happens after the procedure? Your blood pressure, heart rate, breathing rate, and blood oxygen level will be monitored until you leave the hospital or clinic. You will be given fluids through the IV. The IV will be removed when you start eating and drinking normally. You may have some pain. Pain medicine will be available to help you. You will have a catheter draining your urine. ?You may have blood in your urine. Your catheter may be kept in until your urine is clear. ?Your urinary drainage will be monitored. If necessary, your bladder may be rinsed out (irrigated) through your catheter. You will be encouraged to walk around as soon as possible. You may have to wear compression stockings. These stockings help to prevent blood clots and reduce swelling in your legs. If you were given a sedative during the procedure, it can affect you for several hours. Do not drive or operate machinery until your health care provider says that it is safe. Summary Transurethral resection of the prostate (TURP) is the removal (resection) of part of the prostate tissue. The goal of this procedure is to remove enough prostate tissue to allow for a normal flow of urine. Follow instructions from your health care provider about taking medicines and about eating and drinking before the procedure. This information is not intended to replace advice given to you by your health care provider. Make sure you discuss any questions you have with your health care provider. Document Revised: 07/02/2022 Document Reviewed: 07/02/2022 [employer] Patient Education 2022 [employer]. 02/27/2024 15:03:29 Acute Urinary Retention, Male Acute Urinary Retention, Male Acute urinary retention is a condition in which a person is unable to pass urine or can only pass a little urine. This condition can happen suddenly and last for a short time. If left untreated, it can become long-term (chronic) and result in kidney damage or other serious complications. What are the causes? This condition may be caused by: Obstruction or narrowing of the tube that drains the bladder (urethra). This may be caused by surgery, problems with nearby organs, or injury to the bladder or urethra. Problems with the nerves in the bladder. Tumors in the area of the pelvis, bladder, or urethra. Certain medicines. Bladder or urinary tract infection. Constipation. What increases the risk? This condition is more likely to develop in older men. As men age, their prostate may become larger and may start to press or squeeze on the bladder or the urethra. Other chronic health conditions can increase the risk of acute urinary retention. These include: Diseases such as multiple sclerosis. Spinal cord injuries. Diabetes. Degenerative cognitive conditions, such as delirium or dementia. Psychological conditions. A man may hold his urine due to trauma or because he does not want to use the bathroom. What are the signs or symptoms? Symptoms of this condition include: Trouble urinating. Pain in the lower abdomen. How is this diagnosed? This condition is diagnosed based on a physical exam and your medical history. You may also have other tests, including: An ultrasound of the bladder or kidneys or both. Blood tests. A urine analysis. Additional tests may be needed, such as a CT scan, MRI, and kidney or bladder function tests. How is this treated? Treatment for this condition may include: Medicines. Placing a thin, sterile tube (catheter) into the bladder to drain urine out of the body. This is called an indwelling urinary catheter. After it is inserted, the catheter is held in place with a small balloon that is filled with sterile water. Urine drains from the catheter into a collection bag outside of the body. Behavioral therapy. Treatment for other conditions. If needed, you may be treated in the hospital for kidney function problems or to manage other complications. Follow these instructions at home: Medicines Take ejyv-hoz-dfiwhdg and prescription medicines only as told by your health care provider. Avoid certain medicines, such as decongestants, antihistamines, and some prescription medicines. Do not take any medicine unless your health care provider approves. If you were prescribed an antibiotic medicine, take it as told by your health care provider. Do not stop using the antibiotic even if you start to feel better. General instructions Do not use any products that contain nicotine or tobacco. These products include cigarettes, chewing tobacco, and vaping devices, such as e-cigarettes. If you need help quitting, ask your health care provider. Drink enough fluid to keep your urine pale yellow. If you have an indwelling urinary catheter, follow the instructions from your health care provider. Monitor any changes in your symptoms. Tell your health care provider about any changes. If instructed, monitor your blood pressure at home. Report changes as told by your health care provider. Keep all follow-up visits. This is important. Contact a health care provider if: You have uncomfortable bladder contractions that you cannot control (spasms). You leak urine with the spasms. Get help right away if: You have chills or a fever. You have blood in your urine. You have a catheter and the following happens: ?Your catheter stops draining urine. ?Your catheter falls out. Summary Acute urinary retention is a condition in which a person is unable to pass urine or can only pass a little urine. If left untreated, this condition can result in kidney damage or other serious complications. An enlarged prostate may cause this condition. As men age, their prostate gland may become larger and may press or squeeze on the bladder or the urethra. Treatment for this condition may include medicines and placement of an indwelling urinary catheter. Monitor any changes in your symptoms. Tell your health care provider about any changes. This information is not intended to replace advice given to you by your health care provider. Make sure you discuss any questions you have with your health care provider. Document Revised: 06/27/2021 Document Reviewed: 06/27/2021 [employer] Patient Education 2022 [employer]. Follow Up Care 01/28/2024 10:17:57 With:DANO TOBAR, Rajat Hicks, URL Address: [address] [place] [id number]- When: Unknown [facility] 01-05-2024 Hospital Discharge instructions Patient Education 01/05/2024 16:32:37 Benign Prostatic Hyperplasia Benign Prostatic Hyperplasia Benign prostatic hyperplasia (BPH) is an enlarged prostate gland that is caused by the normal aging process. The prostate may get bigger as a man gets older. The condition is not caused by cancer. The prostate is a walnut-sized gland that is involved in the production of semen. It is located in front of the rectum and below the bladder. The bladder stores urine. The urethra carries stored urine out of the body. An enlarged prostate can press on the urethra. This can make it harder to pass urine. The buildup of urine in the bladder can cause infection. Back pressure and infection may progress to bladder damage and kidney (renal) failure. What are the causes? This condition is part of the normal aging process. However, not all men develop problems from this condition. If the prostate enlarges away from the urethra, urine flow will not be blocked. If it enlarges toward the urethra and compresses it, there will be problems passing urine. What increases the risk? This condition is more likely to develop in men older than 50 years. What are the signs or symptoms? Symptoms of this condition include: Getting up often during the night to urinate. Needing to urinate frequently during the day. Difficulty starting urine flow. Decrease in size and strength of your urine stream. Leaking (dribbling) after urinating. Inability to pass urine. This needs immediate treatment. Inability to completely empty your bladder. Pain when you pass urine. This is more common if there is also an infection. Urinary tract infection (UTI). How is this diagnosed? This condition is diagnosed based on your medical history, a physical exam, and your symptoms. Tests will also be done, such as: A post-void bladder scan. This measures any amount of urine that may remain in your bladder after you finish urinating. A digital rectal exam. In a rectal exam, your health care provider checks your prostate by putting a lubricated, gloved finger into your rectum to feel the back of your prostate gland. This exam detects the size of your gland and any abnormal lumps or growths. An exam of your urine (urinalysis). A prostate specific antigen (PSA) screening. This is a blood test used to screen for prostate cancer. An ultrasound. This test uses sound waves to electronically produce a picture of your prostate gland. Your health care provider may refer you to a specialist in kidney and prostate diseases (urologist). How is this treated? Once symptoms begin, your health care provider will monitor your condition (active surveillance or watchful waiting). Treatment for this condition will depend on the severity of your condition. Treatment may include: Observation and yearly exams. This may be the only treatment needed if your condition and symptoms are mild. Medicines to relieve your symptoms, including: ?Medicines to shrink the prostate. ?Medicines to relax the muscle of the prostate. Surgery in severe cases. Surgery may include: ?Prostatectomy. In this procedure, the prostate tissue is removed completely through an open incision or with a laparoscope or robotics. ?Transurethral resection of the prostate (TURP). In this procedure, a tool is inserted through the opening at the tip of the penis (urethra). It is used to cut away tissue of the inner core of the prostate. The pieces are removed through the same opening of the penis. This removes the blockage. ?Transurethral incision (TUIP). In this procedure, small cuts are made in the prostate. This lessens the prostate's pressure on the urethra. ?Transurethral microwave thermotherapy (TUMT). This procedure uses microwaves to create heat. The heat destroys and removes a small amount of prostate tissue. ?Transurethral needle ablation (TUNA). This procedure uses radio frequencies to destroy and remove a small amount of prostate tissue. ?Interstitial laser coagulation (ILC). This procedure uses a laser to destroy and remove a small amount of prostate tissue. ?Transurethral electrovaporization (TUVP). This procedure uses electrodes to destroy and remove a small amount of prostate tissue. ?Prostatic urethral lift. This procedure inserts an implant to push the lobes of the prostate away from the urethra. Follow these instructions at home: Take aakr-xoh-clgiadx and prescription medicines only as told by your health care provider. Monitor your symptoms for any changes. Contact your health care provider with any changes. Avoid drinking large amounts of liquid before going to bed or out in public. Avoid or reduce how much caffeine or alcohol you drink. Give yourself time when you urinate. Keep all follow-up visits. This is important. Contact a health care provider if: You have unexplained back pain. Your symptoms do not get better with treatment. You develop side effects from the medicine you are taking. Your urine becomes very dark or has a bad smell. Your lower abdomen becomes distended and you have trouble passing urine. Get help right away if: You have a fever or chills. You suddenly cannot urinate. You feel light-headed or very dizzy, or you faint. There are large amounts of blood or clots in your urine. Your urinary problems become hard to manage. You develop moderate to severe low back or flank pain. The flank is the side of your body between the ribs and the hip. These symptoms may be an emergency. Get help right away. Call 911. Do not wait to see if the symptoms will go away. Do not drive yourself to the hospital. Summary Benign prostatic hyperplasia (BPH) is an enlarged prostate that is caused by the normal aging process. It is not caused by cancer. An enlarged prostate can press on the urethra. This can make it hard to pass urine. This condition is more likely to develop in men older than 50 years. Get help right away if you suddenly cannot urinate. This information is not intended to replace advice given to you by your health care provider. Make sure you discuss any questions you have with your health care provider. Document Revised: 04/24/2022 Document Reviewed: 04/24/2022 [employer] Patient Education 2022 [place]. 01/05/2024 16:32:36 Acute Urinary Retention, Male Acute Urinary Retention, Male Acute urinary retention is a condition in which a person is unable to pass urine or can only pass a little urine. This condition can happen suddenly and last for a short time. If left untreated, it can become long-term (chronic) and result in kidney damage or other serious complications. What are the causes? This condition may be caused by: Obstruction or narrowing of the tube that drains the bladder (urethra). This may be caused by surgery, problems with nearby organs, or injury to the bladder or urethra. Problems with the nerves in the bladder. Tumors in the area of the pelvis, bladder, or urethra. Certain medicines. Bladder or urinary tract infection. Constipation. What increases the risk? This condition is more likely to develop in older men. As men age, their prostate may become larger and may start to press or squeeze on the bladder or the urethra. Other chronic health conditions can increase the risk of acute urinary retention. These include: Diseases such as multiple sclerosis. Spinal cord injuries. Diabetes. Degenerative cognitive conditions, such as delirium or dementia. Psychological conditions. A man may hold his urine due to trauma or because he does not want to use the bathroom. What are the signs or symptoms? Symptoms of this condition include: Trouble urinating. Pain in the lower abdomen. How is this diagnosed? This condition is diagnosed based on a physical exam and your medical history. You may also have other tests, including: An ultrasound of the bladder or kidneys or both. Blood tests. A urine analysis. Additional tests may be needed, such as a CT scan, MRI, and kidney or bladder function tests. How is this treated? Treatment for this condition may include: Medicines. Placing a thin, sterile tube (catheter) into the bladder to drain urine out of the body. This is called an indwelling urinary catheter. After it is inserted, the catheter is held in place with a small balloon that is filled with sterile water. Urine drains from the catheter into a collection bag outside of the body. Behavioral therapy. Treatment for other conditions. If needed, you may be treated in the hospital for kidney function problems or to manage other complications. Follow these instructions at home: Medicines Take hvxr-qiw-gyuftrx and prescription medicines only as told by your health care provider. Avoid certain medicines, such as decongestants, antihistamines, and some prescription medicines. Do not take any medicine unless your health care provider approves. If you were prescribed an antibiotic medicine, take it as told by your health care provider. Do not stop using the antibiotic even if you start to feel better. General instructions Do not use any products that contain nicotine or tobacco. These products include cigarettes, chewing tobacco, and vaping devices, such as e-cigarettes. If you need help quitting, ask your health care provider. Drink enough fluid to keep your urine pale yellow. If you have an indwelling urinary catheter, follow the instructions from your health care provider. Monitor any changes in your symptoms. Tell your health care provider about any changes. If instructed, monitor your blood pressure at home. Report changes as told by your health care provider. Keep all follow-up visits. This is important. Contact a health care provider if: You have uncomfortable bladder contractions that you cannot control (spasms). You leak urine with the spasms. Get help right away if: You have chills or a fever. You have blood in your urine. You have a catheter and the following happens: ?Your catheter stops draining urine. ?Your catheter falls out. Summary Acute urinary retention is a condition in which a person is unable to pass urine or can only pass a little urine. If left untreated, this condition can result in kidney damage or other serious complications. An enlarged prostate may cause this condition. As men age, their prostate gland may become larger and may press or squeeze on the bladder or the urethra. Treatment for this condition may include medicines and placement of an indwelling urinary catheter. Monitor any changes in your symptoms. Tell your health care provider about any changes. This information is not intended to replace advice given to you by your health care provider. Make sure you discuss any questions you have with your health care provider. Document Revised: 06/27/2021 Document Reviewed: 06/27/2021 [employer] Patient Education 2022 [place]. Follow Up Care 12/03/2023 09:11:08 With:SAMMI Duarte APRN, GARY Tervino, URL Address: When: Unknown Comments:Pending cystoscopy results [facility] 12-02-2023 History of Present illness Narrative HPI: Historian of HPI: patient Latisha Costa is a 73 y.o. male who presents today to the Urgent Care with the following complaints and denials due right third finger finger pain which has been present for 1 day(s). C/O Denies Symptom Comments [x] [] swelling [] [x] ecchymosis [] [x] erythema [] [x] tingling [x] [] numbness [] [x] Pain radiation [x] [] Weakness [x] [] Decreased ROM [] [x] Trauma Additional Comments: pt has not taken any OTC medications Pt denies heat application to the affected area Pt denies cold application to the affected area Pts stated pt was just discharged from [facility] yesterday. Pt was in [facility] for dehydrated kidneys and blockage in his bladder. Pt now has a catheter for 2 weeks. Pt stated when he was in the hospital the IV was in the same arm in the elbow area. Pts entire right hand is swollen with middle finger being the biggest concern. ROS: A complete system ROS was performed and negative aside from the pertinent positives noted in the HPI and PE. Examination General Examination: General Examination: Alert, oriented, normal affect, well appearing, in no acute distress, well developed, well nourished Head: normocephalic, atraumatic Eyes: sclera non-icteric Neck/Thyroid: neck supple, FROM Skin: normal Heart: no murmurs, regular rate and rhythm, S1, S2 normal Lungs: clear to auscultation bilaterally Musculoskeletal: right Hand: [employer] decreased 2 pt pinch intact No joint instability Diffuse swelling and tenderness over the pip joint extending out to proximal phalanx Extremities: no cyanosis Peripheral pulses: 2+ radial, 2+ ulnar, nail lali intact Neurologic: sensory exam intact Psych: alert, oriented, cognitive function intact, cooperative with exam HPI and documentation approved and amended as necessary by Dr. Kun Nolasco. Transcribed by Katie aguirre LPN-IV 1. Pain of right middle finger Prelim interp of right middle finger XR negative for acute changes, DJD. Results reviewed with patient. - XR fingers 2+ views right 2. Osteoarthritis of right hand, unspecified osteoarthritis type Reviewed. 3. Cellulitis of right middle finger Dx and tx reviewed with patient. Medication as directed. Push fluids. Warm soaks. Moist heat. Must call superintendent operating to obtain approval before starting atb. Follow up with PCP. - doxycycline (Vibramycin) 100 MG capsule; Take 1 capsule (100 mg) by mouth in the morning and 1 capsule (100 mg) before bedtime. Do all this for 7 days. Take with at least 8 ounces (large glass) of water, do not lie down for 30 minutes after. Dispense: 14 capsule; Refill: 0 documented in this encounter [facility] 12-02-2023 Instructions Katie Michael RN - 12/02/2023 9:50 AM EST See progress note documented in this encounter [facility] 07-23-2023 History and physical note Note Date/Time July 23, 2023 11:36am [facility] [address] [place] [address] Gastroenterology H&P Signed Patient: Latisha Costa MR#: [id number] : 1950 Acct:[id number] Age/Sex: 72 / M Adm Date: 3 Loc: Room: Type: [facility] Attending Dr: Adal Green MD Copies to: Dangelo Schuler, DO Adal Green MD~ Date of Service: 07/23/2023 HISTORY & PHYSICAL: Patient's history with special attention to the cardiovascular, pulmonary systems and the current problem was reviewed with the patient immediately prior to the procedure. Present medications and doses reviewed in the EMR. Allergies and pertinent laboratory tests were also reviewedat this time in the EMR. The physical examination, as below, was then performed. Indication, assessment and HPI: 72-year-old man with history of colonic polyps here for surveillance colonoscopy Family history of GI malignancy? No PHYSICAL EXAMINATION Mouth and Pharynx : Moist mucus membranes, normal dentition Cardiac: Regular rate, regular rhythm Pulmonary: Clear to auscultation bilaterally, no wheezing Neurological: Alert and oriented x3, no focal deficits noted Abdomen: Abdomen soft, non-tender REVIEW OF SYSTEMS Constitutional: Denies malaise, fevers Cardiovascular: Denies chest pain, palpitations Respiratory: Denies shortness of breath, wheezing Gastrointestinal: Per HPI Genitourinary: Denies dysuria, polyuria Musculoskeletal: Denies joint swelling, joint stiffness Neurological: Denies numbness, tingling Integumentary: Denies rashes, skin lesions Endocrine: Denies fatigue, weight loss Written informed consent obtained from the patient. Risks (including but not limited to perforation, infection, bloating, bleeding, need for emergent surgeryand loss of life), benefits and alternatives explained and questions answered. The patient verbalized understanding. Based on history patient is an appropriate candidate for the procedure. Adal Green M.D. Documented By: Adal Green MD 07/23/23 1135 Signed By: <Electronically signed by Adal Green MD> 07/23/23 2602 [facility] Work Phone: 1(939) 977-781010-04-2023 [facility] No data available for this section [facility] evaluation + Plan note Future Appointments Appointment Date:03/02/2024 03:00:00 PM Scheduled Provider:Rajat AVILA MD Location:[facility] Appointment Type:URO Procedure 15 min [facility] Evaluation + Plan note Future Appointments Appointment Date:05/31/2024 09:30:00 AM Scheduled Provider: Location:[facility] Appointment Type:URO Nurse Visit Appointment Date:06/23/2024 03:00:00 PM Scheduled Provider:Rajat AVILA MD Location:[facility] Appointment Type:URO Office Visit [facility] evaluation noteNo assessment information available [facility] Work Phone: evaluation note* Diagnosis Onset Date Resolution Status Acute urinary retention acut e JER (acute kidney injury) ac salam[place]of [facility] Work Phone: evaluation note* Diagnosis Onset Date Resolution Status Acute kidney injury superimposed on CKD acute Acute urinary retention acut e JER (acute kidney injury) ac [place] Anemia acute Coronary artery disease acut e Hypertension acute [facility] Work Phone: evaluation note* Diagnosis Cellulitis of right middle finger- Primary Pain of right middle finger Osteoarthritis of right hand, unspecified osteoarthritis type [facility] Diagnosis Onset Date Resolution Status Acute kidney injury superimposed on CKD acute Anemia acute Coronary artery disease acut e Hypertension acute Anemia of renal disease acut e BPH loc w urin obs/LUTS acut e CKD (chronic kidney disease) stage 4, GFR 15-29 ml/min acute Coronary artery disease acut e [id number] acute Secondary hyperparathyroidism acute [facility] Work Phone: evaluation note* Diagnosis Onset Date Resolution Status Anemia of renal disease acut e BPH loc w urin obs/LUTS acut e CKD (chronic kidney disease) stage 4, GFR 15-29 ml/min acute Coronary artery disease acut e [id number] acute Secondary hyperparathyroidism acute [facility] Work Phone: Hospital Discharge instructions Additional Instructions DISCHARGE INSTRUCTIONS FOR COLONOSCOPY WHAT TO EXPECT: - You may feel full, gassy or cramping after your procedure. In some cases, this may be from a few hours to a day. Walking may help relieve the discomfort. - If you have polyp(s) removed you may note some minor bloody discharge after your first bowel movements. - You should begin to recover from anesthesia within 1 hour of the procedure, however may feel groggy for the next 24 hours. DO's AND DON'Ts: - Call your doctor right away if you have a hard abdomen, severe pain, are passing lots of bright red blood or clots. - Call your doctor if you develop any rashes, hives or difficulty breathing. - Let your doctor know if you have not had a bowel movement by 3 days after your procedure. - If you take 81 mg aspirin for your heart it is safe to resume this medication. - If you take other blood thinner medications your doctor will instruct you when these can safely be resumed. - Do NOT drive for 24 hours. - Do NOT operate machinery such as power tools, lawn mowers, snow blowers, sewing machines, etc. for 24 hours. - Avoid alcoholic beverages and drugs for allergies, nerves, or sleep. - Do NOT stay alone. Do NOT leave your child unattended. - Do NOT make important personal or business decisions or sign any legal documents. - Eat solid foods and drink liquids in smaller amounts than usual until normal appetite returns. If you should experience an upset stomach, liquids high in sugar content (soda, Jasper-Aid, non-acid juices) are recommended. - You can resume normal activities tomorrow. FOLLOW UP & RECOMMENDATIONS: -Notify the doctor if you have any problems. -Repeat colonoscopy next available due to inadequate prep -Follow up with PCP. -Office number [phone]. [facility] Work Phone: Hospital Discharge instructions Additional Instructions Ample water intake is encouraged by superintendent operating Keep lee catheter in place until follow up with Urologist as scheduled. [facility] Work Phone: Hospital Discharge instructions Additional Instructions Continue the antibiotics you are prescribed by urgent care Warm compresses to the reddened area Continue regular medication Follow-up with your family doctor and follow-up with [facility] for the finger Return to the ER for worsening redness swelling pain fever chills or any other [facility] Work Phone: Hospital Discharge instructions No data available for this section [facility] Progress note No data available for this section [facility] Chief Complaint and Reason for Visit Chief Complaint Hx Colon Polyps Chief Complaint Chronic Kidney Disea se Chief Complaint Chronic Kidney Disea se sent over for a cath Reason for Visit Acute urinary retent ion JER (acute kidney injury) Chief Complaint Chronic Kidney Disea se sent over for a cath Reason for Visit Acute kidney injury superimposed on CKD Acute urinary retention JER (acute kidney injury) Anemia Coronary artery disease Hypertension Chief Complaint Chronic Kidney Disea se sent over for a cath Dr sent over for a cath Right arm swelling Reason for Visit Acute kidney injury superimposed on CKD Acute urinary retention JER (acute kidney injury) Anemia Coronary artery disease Hypertension Chief Complaint Chronic Kidney Disea se sent over for a cath Dr sent over for a cath Right arm swelling evaulate aorta crea elevated possible thoracic ane [facility] Reason for Visit Acute kidney injury superimposed on CKD Anemia Coronary artery disease Hypertension Anemia of renal disease BPH loc w urin obs/LUTS CKD (chronic kidney disease) stage 4, GFR 15-29 ml/min Coronary artery disease [id number] Secondary hyperparathyroidism Chief Complaint [facility] blood in urine Reason for Visit Anemia of renal dise ase BPH loc w urin obs/LUTS CKD (chronic kidney disease) stage 4, GFR 15-29 ml/min Coronary artery disease [id number] Secondary hyperparathyroidism Family History No Family History Records Found Relationship Condition Age at Onset Recorded Date/T amina father Amputation of both lower extremities Unkn own Diabetes mellitus Unknown Alcohol abuse Unknown Advance Directives No Advanced Directives Records Found Advance Directive Response Recorded Date/ Time Advance Directives No April 15 3:53pm Advance Directive Response Recorded Date/ Time Advance Directives No April 15 2:53pm Summary Purpose Additional Source Comments Care Teams (unrecognized sec tion and content) Team Status: Active Member Role Status Dates Dangelo Schuler DO Primary Care Provider Active Team Status: Inactive Member Role Status Dates Dangelo Schuler DO Primary Care Provider Active Adal Green MD Attending Provider Active Team Status: Inactive Member Role Status Dates Dangelo Schuler DO Primary Care Provide r, Attending Provider Active Start: November 21, 2023 End: November 21, 2023 Team Status: Active Member Role Status Dates Dangelo Schuler DO Primary Care Provider Active Start: November 25, 2023 Edna Alonso APRN Emergency Provider Active Start: November 25, 2023 Travon Pandya MD Admit Provider, A ttending Provider Active Start: November 25, 2023 Team Status: Active Member Role Status Dates Dangelo Schuler DO Primary Care Provider Active Start: November 25, 2023 Edna Alonso APRN Emergency Provider Active Start: November 25, 2023 Travon Pandya MD Admit Provider, O ther Provider Active Start: November 25, 2023 Dannie Montana MD Other Provider Active Start: F ebruary 2023 JOSE J Burton Other Provider Active Start: November 25, 2023 Sravan Grossman MD Other Provider Active Start: Fe bruary 2023 Sacha Roth MD Other Provider Active Star t: November 25, 2023 Guillermo Geronimo MD Other Provider Active Start: November 25, 2023 Eladio Garcia MD Other Provider Active Start: F ebruary 2023 Yolanda Montanez APRN Attending Provider Active Sta rt: November 25, 2023 Will Jane MD Attending Provider Active Start : November 25, 2023 End: December 01, 2023 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 Start Date End Date Unallocated, Noms Provider [id number] [place] [address] PCP - General Family Medicine 12/02/23 Team Status: Active Member Role Status Dates Dangelo Schuler DO Primary Care Provider Active Start: December 01, 2023 Edna Alonso APRN Emergency Provider Active Start: December 01, 2023 Travon Pandya MD Admit Provider Active Sta rt: December 01, 2023 Dannie Montana MD Other Provider Active Start: 2023 JOSE J Burton Other Provider Active Start: December 01, 2023 Sravan Grossman MD Other Provider Active Start: 2023 Sacha Roth MD Other Provider Active Star t: December 01, 2023 Guillermo Geronimo MD Other Provider Active Start: December 01, 2023 Eladio Garcia MD Other Provider Active Start: 2023 Latisha Suazo Other Provider Active Start: 2023 Will Jane MD Other Provider Active Start: 2023 Corie Chapin APRN Attending Provider Active Start: December 01, 2023 Team Status: Inactive Member Role Status Dates Dangelo Schuler DO Primary Care Provider Active Start: December 04, 2023 End: December 04, 2023 Beatriz Welsh [facility] Emergency Provider Active Start: December 04, 2023 End: December 04, 2023 Team Status: Inactive Member Role Status Dates Dangelo Schuler DO Primary Care Provide r, Attending Provider Active Start: December 18, 2023 End: December 18, 2023 Team Status: Inactive Member Role Status Dates Daneglo Schuler DO Primary Care Provider Active Start: January 20, 2024 End: January 20, 2024 Sravan Grossman MD Attending Provider Active Start : January 20, 2024 End: January 20, 2024 Team Status: Inactive Member Role Status Dates Dangelo Schuler DO Primary Care Provider Active Start: April 04, 2024 End: April 04, 2024 Darryl Garcia DO Emergency Provider Active Sta rt: April 04, 2024 End: April 04, 2024 Goals (unrecognized section and content) Goals may be documented in a n alternate sectionGoals may be documented in an alternate sectionGoals may be documented in an alternate sectionGoals may be documented in an alternate section No data available for this sectionGoals may be documented in an alternate section No data available for this section No data available for this section No data available for this sectionGoals may be documented in an alternate section No data available for this section (unrecognized sect ion and content) No Status Records FoundNo Status Records FoundNo Status Records Found INFORMATION SOURCE (unrecogn ized section and content) DATE CREATED AUTHOR 12/07/2023 [facility] DATE CREATED AUTHOR AUTHOR'S ORGANIZ ATION 04/20/2024 [facility] DATE CREATED AUTHOR AUTHOR'S ORGANIZ ATION 04/21/2024 [facility] FOR RECORDS PERTAINING TO PATIENTS WHO ARE OR HAVE BEEN ENROLLED IN A CHEMICAL DEPENDENCY/SUBSTANCEABUSE PROGRAM, SOME INFORMATION MAY BE OMITTED. This clinical summary was aggregated from multiple sources. Caution should be exercised in using it in the provision of clinical care. This summary normalizes information from multiple sources, and as a consequence, information in this document may materially change the coding, format and clinical context of patient data. In addition, data may be omitted in some cases. CLINICAL DECISIONS SHOULD BE BASED ON THE PRIMARY CLINICAL RECORDS. [employer] provides no warranty or guarantee of the accuracy or completeness of information in this document.
[2024-05-27] MEDS: LACTATED RINGER'S SOLUTION 1,000 ML 50 ML IV (11:40)
[2024-05-27] MEDS: LEVOFLOXACIN IN DEXTROSE 5 % 500 MG/100 ML PIGGYBACK 100 MG IV (12:52)
--- NOTE | 2024-05-27 13:59 | P.URON_ITS ---
Urology Surgery Operative Note Operative Note Procedure Date: 05/27/24 Time Out Performed: yes Pre-op Diagnosis: BPH with LUTS and stephen retention Post-op Diagnosis: same as pre-op Procedures performed: 1. Cystoscopy. 2. Transurethral resection of the prostate. 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 Maharaj to the bladder tape to traction and CBI Indications for Procedures: This gentleman has BPH with LUTS and ultimately he went into urinary retention. He was obstructed endoscopically and urodynamically. He now presents for cystoscopy and TURP. He has signed an informed consent after risks were explained. Some of these risks include bleeding, infection, anesthesia, or urinary incontinence both temporary and permanent, retrograde ejaculation, erectile dysfunction, persistent urinary retention despite getting surgery done and possible need for further procedures. Detailed description of Procedure: The patient was brought to the operating room and placed on the operating room table in the supine position. SCDs were placed on the lower extremities and turned on and functioning during the entire case. Timeout was done by all parties in the room. We all agreed upon the patient's identification and the planned procedures for this patient. Genn. anesthesia was then administered. The patient was then repositioned into the modified dorsal lithotomy position. All pressure points were satisfactorily padded. Genitalia were sterilely prepped and draped in usual fashion. I started by passing a 26 [place] resectoscope with a standard bipolar loop electrode per urethra and into the bladder. The ureteral orifices were marked with the loop electrode. I then uniformly resected the large capacious median lobe down to the bladder neck level. I then resected posteriorly from the bladder neck to the Veru level. The left lateral lobe was then taken down from the bladder neck to the Veru level and capsular level. The right lateral lobe and the anterior tissue were similarly taken down. The bladder neck was opened up at the 5 and 7:00 positions. The apex was then opened. The resection bed was coagulated with the loop electrode. The Ilich evacuator was used to get all the prostate chips out of the bladder and these were sent for permanent sections. Upon completion, with the scope at the apex, the bladder neck and prostatic urethra were now wide open. There was no bleeding. There were no chips remaining in the bladder. The scope was then removed. I then passed a 22 [place] three-way coud? Maharaj in the bladder. This was manually irrigated with a catheter tip syringe to verify placement. 30 cc of fluid was placed in the balloon. It was taped to traction and CBI was started. It irrigated clear. The anesthetic was then reversed. He was then transferred to a [facility] bed and wheeled to PACU in stable condition. Urinary Catheter Management Urinary Catheter Management 3-way Urethral: Cath placed during this visit: no
[2024-05-27] MEDS: 0.9 % SODIUM CHLORIDE 1,000 ML 80 ML IV (14:09)
[2024-05-27] MEDS: SODIUM CHLORIDE IRRIG SOLUTION 3,000 ML 3000 ML IRR ×12 (15:01→23:20)
[2024-05-27] MEDS: SOLIFENACIN SUCCINATE 10 MG TABLET PO (15:01)
[2024-05-27] MEDS: CEFAZOLIN SODIUM/DEXTROSE,ISO 1 GM/50 ML PREMIX IV (20:55)
--- NOTE | 2024-05-28 00:07 | PC.NURSE ---
1999- pt called out stating he felt pressure in his bladder. CBI was positional. RN and nursing industrial gas servicer supervisor in the room to irrigate bladder. patient tolerated well and CBI flowing again. pt resting in bed with call light in reach. 2129- pt called out again stating that he felt pressure and the CBI had stopped flowing. RN in room to irrigate and was able to irrigate a clot about the size of a quarter. Pt felt relieved and CBI began flowing again. Pt has no other complaints at this time and has call light in reach.
[2024-05-28] MEDS: SODIUM CHLORIDE IRRIG SOLUTION 3,000 ML 3000 ML IRR ×7 (00:16→06:43)
[2024-05-28] MEDS: CEFAZOLIN SODIUM/DEXTROSE,ISO 1 GM/50 ML PREMIX IV (02:35)
[2024-05-28] MEDS: 0.9 % SODIUM CHLORIDE 1,000 ML 80 ML IV (02:35)
--- NOTE | 2024-05-28 03:21 | PC.NURSE ---
0315 pt again has complaints of pressure in his bladder. RN in to assess and irrigated the catheter. Approximately 6 small clots were removed with the irrigation. Maharaj is now draining and pt states he has relief from the pressure.
[2024-05-28 04:00] VITALS: BP 185/87; PULSE 81; TEMP 36.6; O2SAT 96
--- NOTE | 2024-05-28 05:11 | PC.NURSE ---
traction released and CBI weaning at 0500. pt tolerated well and resting in bed with call light in reach.
[2024-05-28] MEDS: LEVOTHYROXINE SODIUM 25 MCG TABLET PO (06:20)
--- NOTE | 2024-05-28 06:29 | PC.NURSE ---
0625- RN attempted to to wean CBI however color changed from pale pink to bright red. So RN restarted CBI. RN called Dr. Avila to speak to him and update on patient's condition. Dr. Avila stated to continue the CBI and try to wean it down in an hour and stated to never stop a CBI if the output is bright red.
[2024-05-28 07:30] VITALS: BP 137/90; PULSE 74; TEMP 36.8; O2SAT 97
--- NOTE | 2024-05-28 08:11 | PC.NURSE ---
travel writer irrigated patients catheter per verbal order of Dr. Avila, got a few small clots out.
[2024-05-28] MEDS: FLUOXETINE HCL 20 MG CAPSULE PO (08:16)
[2024-05-28] MEDS: ATENOLOL 25 MG TABLET PO (08:16)
[2024-05-28] MEDS: LOSARTAN POTASSIUM 50 MG TABLET 100 MG PO (08:16)
[2024-05-28] MEDS: HYDROCHLOROTHIAZIDE 25 MG TABLET PO (08:16)
[2024-05-28] MEDS: AMLODIPINE BESYLATE 5 MG TABLET 10 MG PO (08:16)
[2024-05-28] MEDS: GEMFIBROZIL 600 MG TABLET PO (08:16)
[2024-05-28] MEDS: SOLIFENACIN SUCCINATE 10 MG TABLET PO (08:16)
== END 2024-05-28 12:25 | disposition home or self-care (01) ==
LOC: SURGOUT 13:53 → MS 14:32
PROVIDERS: Family Provider Family Medicine; Visit Provider Urology
PROC: (CPT 914; principal; 2024-05-27 12:40)
DX: N40.1 Benign prostatic hyperplasia with lower urinary tract symptoms (principal); M10.9 Gout, unspecified; R31.0 Gross hematuria; C14.0 Malignant neoplasm of pharynx, unspecified; R33.9 Retention of urine, unspecified; I25.10 Atherosclerotic heart disease of native coronary artery without angina pectoris; I10 Essential (primary) hypertension; E03.9 Hypothyroidism, unspecified; I65.22 Occlusion and stenosis of left carotid artery; R13.10 Dysphagia, unspecified
CPT/HCPCS: 52601; 36415; 88305; 96365; J0690; J1100; J2250; J2405; J2704; J3010